=== PATIENT | female | born 1960 | race Caucasian/White ===

== ENCOUNTER 2018-10-06 03:09 | Inpatient (IN) | payer BC ==
[2018-10-06] MEDS ORDERED: Albuterol/Ipratropium 3.0-0.5 MG/3 ML Neb Soln ONE ×2 (04:07→06:22)
[2018-10-06] MEDS: Albuterol/Ipratropium 3.0-0.5 MG/3 ML Neb Soln NEB ONE ×2 (04:15→06:25)
--- NOTE | 2018-10-06 04:38 | EDM.PDOC ---
ED HPI GENERAL MEDICAL PROBLEM - General Chief Complaint: Respiratory Problem Stated Complaint: SHORT OF BREATH Time Seen by Provider: 10/06/18 03:50 Source of Information: Reports: Patient History Limitations: Reports: No Limitations - History of Present Illness INITIAL COMMENTS - FREE TEXT/NARRATIVE: This is a 58-year-old female. On September 16 she started having increasing shortness of breath and was told she had bronchitis and placed on some antibiotics. She was given an inhaler because she was wheezing but every time she would try to use the inhaler would make her cough gets short of breath. The antibiotics really did not help her and she went back to see her family doctor who put her on some doxycycline just recently but that is not helping her either. She has constant wheezing and tightness in her chest. Since this was not easing up she came to the ER this morning for evaluation. She says for the last several night she can't lay down and sleep because she is short of breath she can't walk across the room because she gets short of breath. When she walked into the ER and was talking her pulse ox was 82% when she sat down in the room on room air was 86% to put 2 L on her by nasal cannula it went up to 92%. She denies any sort of fever or chills. She denies any nausea or vomiting. She has no history of asthma she has no history of COPD though she used to smoke but quit about a month ago. She says she was never a heavy smoker. - Related Data Allergies Allergy/AdvReac Type Severity Reaction Status Date / Time No Known Allergies Allergy Verified 10/06/18 04:16 Home Meds: Home Meds Aspirin 81 mg PO DAILY 01/21/18 [History] Bimatoprost [LUMIGAN 0.01% Ophth Soln] 1 drop EYEBOTH BEDTIME 01/21/18 [History] Levothyroxine 150 mg PO 0700 01/21/18 [History] Metoprolol Succinate 200 mg PO DAILY 01/21/18 [History] Timolol Maleate [Timoptic 0.25% Ophth Soln] 1 drop EYEBOTH DAILY 01/21/18 [ History] hydroCHLOROthiazide [Hydrochlorothiazide] 12.5 mg PO DAILY 01/21/18 [History] Doxycycline [Vibramycin] 100 mg PO BID 10/06/18 [History] Lisinopril/Hydrochlorothiazide [Lisinopril-Hctz 20-25 mg Tab] 1 tab PO DAILY [History] Lutein/Minerals/Vit A,C & E [Ocuvite] 1 tab PO DAILY 10/06/18 [History] amLODIPine Besylate [Amlodipine Besylate] 5 mg PO DAILY 10/06/18 [History] Past Medical History HEENT History: Reports: Glaucoma Other HEENT History: dry eye Cardiovascular History: Reports: Heart Murmur, Hypertension Endocrine/Metabolic History: Reports: Hypothyroidism Other Endocrine/Metabolic History: pt states that she has Graves Disease Hematologic History: Reports: Anemia - Infectious Disease History Infectious Disease History: Reports: Chicken Pox, Measles, Mumps Social & Family History - Tobacco Use Smoking Status *Q: Former Smoker Packs/Tins Daily: 0.2 Used Tobacco, but Quit: Yes Month/Year Tobacco Last Used: 09/2018 - Caffeine Use Caffeine Use: Reports: None - Recreational Drug Use Recreational Drug Use: Yes - Living Situation & Occupation Living situation: Reports: , with Spouse Occupation: Unemployed ED ROS GENERAL - Review of Systems Review Of Systems: See Below Constitutional: Reports: Malaise, Weakness, Fatigue. Denies: Fever, Chills HEENT: Reports: No Symptoms Respiratory: Reports: Shortness of Breath, Wheezing, Cough Cardiovascular: Reports: Chest Pain Endocrine: Reports: No Symptoms GI/Abdominal: Denies: Abdominal Pain, Diarrhea, Nausea, Vomiting : Reports: No Symptoms Musculoskeletal: Reports: No Symptoms Skin: Reports: No Symptoms Neurological: Reports: No Symptoms Psychiatric: Reports: Anxiety Hematologic/Lymphatic: Reports: No Symptoms ED EXAM, GENERAL - Physical Exam Exam: See Below Exam Limited By: No Limitations General Appearance: Alert, WD/WN, Mild Distress Eye Exam: Bilateral Eye: Normal Inspection Ears: Normal External Exam, Normal Canal, Normal TMs Nose: Normal Inspection. No: Nasal Flaring Throat/Mouth: Normal Inspection, Normal Lips, Normal Voice Head: Normocephalic Neck: Normal Inspection, Supple Respiratory/Chest: Wheezing, Other (She has an inspiratory and expiratory wheeze with a very prolonged expiratory phase noted, there does not appear to be consolidation noted) Cardiovascular: Regular Rate, Rhythm, No Murmur GI/Abdominal: Other (Patient is morbidly obese but denies any abdominal tenderness) Back Exam: Decreased Range of Motion Extremities: Normal Inspection, Normal Range of Motion, No Pedal Edema, Normal Capillary Refill Neurological: Alert, Oriented Psychiatric: Normal Affect, Normal Mood Skin Exam: Warm, Dry EKG INTERPRETATION EKG Date: 10/06/18 Time: 04:20 EKG Interpretation Comments: EKG shows a normal sinus rhythm rate of 66 with there are no acute ST or T-wave changes and there is no ischemia noted Course - Vital Signs Last Recorded V/S: Last Vital Signs Temp 97.2 F 10/06/18 03:34 Pulse 63 10/06/18 03:34 Resp 28 H 10/06/18 03:34 BP 117/79 10/06/18 03:34 Pulse Ox 94 L 10/06/18 04:55 - Orders/Labs/Meds Orders: Active Orders 24 hr Category Date Time Status EKG 12 Lead [EKG Documentation Completion] [] STAT Care 10/06/18 04:07 Active Oxygen Therapy Adult [Oxygen Therapy, ED] [] Care 10/06/18 04:02 Active ASDIRECTED RT Aerosol Therapy [RC] ASDIRECTED Care 10/06/18 04:09 Active RT Aerosol Therapy [RC] ASDIRECTED Care 10/06/18 04:42 Active Chest 2V [CR] Stat Exams 10/06/18 04:07 Taken Labs: Laboratory Tests 10/06/18 10/06/18 10/06/18 Range/Units 04:20 04:20 04:20 WBC 11.00 H (3.98-10.04) K/mm3 RBC 5.29 H (3.98-5.22) M/mm3 Hgb 16.9 H (11.2-15.7) gm/L Hct 46.3 H (34.1-44.9) % MCV 87.5 (79.4-94.8) fl MCH 31.9 (25.6-32.2) pg MCHC 36.5 H (32.2-35.5) g/dl RDW Std Deviation 39.6 (36.4-46.3) fL Plt Count 334 (182-369) K/mm3 MPV 11.0 (9.4-12.3) fl Neut % (Auto) 65.6 (34.0-71.1) % Lymph % (Auto) 13.5 L (19.3-51.7) % [place] % (Auto) 7.5 (4.7-12.5) % Eos % (Auto) 12.5 H (0.7-5.8) Baso % (Auto) 0.7 (0.1-1.2) % Neut # (Auto) 7.23 H (1.56-6.13) K/mm3 Lymph # (Auto) 1.48 (1.18-3.74) K/mm3 [place] # (Auto) 0.82 H (0.24-0.36) K/mm3 Eos # (Auto) 1.37 H (0.04-0.36) K/mm3 Baso # (Auto) 0.08 (0.01-0.08) K/mm3 Sodium 135 L (136-145) mEq/L Potassium 3.2 L (3.5-5.1) mEq/L Chloride 98 (98-107) mEq/L Carbon Dioxide 27 (21-32) mEq/L Anion Gap 13.2 (5-15) BUN 10 (7-18) mg/dL Creatinine 0.8 (0.55-1.02) mg/dL Est Cr Clr Drug Dosing 82.06 mL/min Estimated GFR (MDRD) > 60 (>60) mL/min BUN/Creatinine Ratio 12.5 L (14-18) Glucose 114 H (74-106) mg/dL Calcium 9.7 (8.5-10.1) mg/dL Total Bilirubin 1.0 (0.2-1.0) mg/dL AST 20 (15-37) U/L ALT 47 (14-59) U/L Alkaline Phosphatase 89 (46-116) U/L Troponin I < 0.017 (0.00-0.056) ng/mL C-Reactive Protein 1.4 H* (<1.0) mg/dL NT-Pro-B Natriuret Pep 65 (0-125) pg/mL Total Protein 7.7 (6.4-8.2) g/dl Albumin 3.9 (3.4-5.0) g/dl Globulin 3.8 gm/dL Albumin/Globulin Ratio 1.0 (1-2) Meds: Medications Discontinued Medications Generic Name Dose Route Start Last Admin Trade Name Freq PRN Reason Stop Dose Admin Albuterol/Ipratropium Confirm 10/06/18 04:07 10/06/18 04:15 Duoneb 3.0-0.5 Mg/3 Ml Administered 10/06/18 04:08 Not Given Dose 3 ml .ROUTE .STK-MED ONE Albuterol/Ipratropium 3 ml 10/06/18 04:09 10/06/18 04:15 Duoneb 3.0-0.5 Mg/3 Ml NEB 10/06/18 04:10 3 ml ONETIME ONE Administration Budesonide 0.5 mg 10/06/18 04:42 10/06/18 04:53 Pulmicort NEB 10/06/18 04:43 0.5 mg ONETIME ONE Administration Methylprednisolone Sodium Succinate 125 mg 10/06/18 05:08 10/06/18 05:29 Solu-Medrol IVPUSH 10/06/18 05:09 125 mg ONETIME ONE Administration - Radiology Interpretation Free Text/Narrative:: Chest x-ray does not show any acute changes but she has very large lungs suggesting early emphysema - Re-Assessments/Exams Free Text/Narrative Re-Assessment/Exam: 10/06/18 05:10 I spoke to the patient regarding her test results and x-ray. He breathing treatment and the Pulmicort started to open her up she still has wheezing both inspiratory and expiratory and a prolonged expiratory phase. 10/06/18 06:14 After breathing treatment and a Pulmicort and Solu-Medrol IV and another breathing treatment she really hasn't changed this far as the wheezing is concerned. I spoke to Dr. Carter he will admit her for further evaluation and treatment. She has acute bronchitis with exacerbation of COPD with hypoxemia. Departure - Departure Time of Disposition: 06:17 Disposition: Admitted As Inpatient 68 Condition: Poor Clinical Impression: Acute exacerbation of chronic obstructive pulmonary disease (COPD), Hypoxemia Acute bronchitis Qualifiers: Bronchitis organism: unspecified organism Qualified Code(s): J20.9 - Acute bronchitis, unspecified - Discharge Information ED Communication - ED Communication Date/Time Date: 10/06/18 Time Called: 06:18 - Discussed Case With (1) Discussed Case With (1): Admitting Provider Person/s Notified (1): Antoine Puentes (He will admit for further evaluation and treatment) - My Orders Last 24 Hours: My Active Orders 10/06/18 04:02 Oxygen Therapy Adult [Oxygen Therapy, ED] [RC] ASDIRECTED 10/06/18 04:07 EKG 12 Lead [EKG Documentation Completion] [RC] STAT Chest 2V [CR] Stat 10/06/18 04:09 RT Aerosol Therapy [RC] ASDIRECTED 10/06/18 04:42 RT Aerosol Therapy [RC] ASDIRECTED - Assessment/Plan Last 24 Hours: My Active Orders 10/06/18 04:02 Oxygen Therapy Adult [Oxygen Therapy, ED] [RC] ASDIRECTED 10/06/18 04:07 EKG 12 Lead [EKG Documentation Completion] [RC] STAT Chest 2V [CR] Stat 10/06/18 04:09 RT Aerosol Therapy [RC] ASDIRECTED 10/06/18 04:42 RT Aerosol Therapy [RC] ASDIRECTED
[2018-10-06] MEDS ORDERED: Budesonide 0.5 MG/2 ML Neb Susp NEB ONE (04:42)
[2018-10-06] MEDS ORDERED: methylPREDNISolone Sodium Succinate 125 MG/2 ML SDV IVPUSH ONE (05:08)
[2018-10-06] MEDS ORDERED: Albuterol/Ipratropium 3.0-0.5 MG/3 ML Neb Soln NEB ONE (06:15)
[2018-10-06] MEDS ORDERED: cefTRIAXone 2 GM Vial IVPUSH SCH (09:30)
[2018-10-06] MEDS ORDERED: Potassium Chloride 20 MEQ Tab.ER PO ONE (09:30)
[2018-10-06] MEDS ORDERED: Non-Formulary Medication 1 Each (Hydrochlorothiazide [Hydrochlorothiazide] 12.5 MG) PO SCH (09:30)
[2018-10-06] MEDS: Levothyroxine 150 MCG Tab PO SCH (10:18)
[2018-10-06] MEDS: Aspirin 81 MG Tab.EC PO SCH (10:18)
[2018-10-06] MEDS: Metoprolol Succinate 50 MG Tab.ER PO SCH (10:18)
[2018-10-06] MEDS: Hydrochlorothiazide 12.5 MG Cap PO SCH (10:19)
[2018-10-06] MEDS: Lisinopril 20 MG Tab PO SCH (10:20)
[2018-10-06] MEDS: amLODIPine 5 MG Tab PO SCH (10:21)
[2018-10-06] MEDS: methylPREDNISolone Sodium Succinate 40 MG/1 ML SDV IVPUSH SCH ×3 (10:21→22:19)
[2018-10-06] MEDS: cefTRIAXone 2 GM in Sodium Chloride 0.9% 100 ML IV SCH (10:25)
[2018-10-06] MEDS: Timolol Maleate 0.25% Ophth Soln 5 ML Bottle EYEBOTH SCH (10:36)
[2018-10-06] MEDS: Albuterol/Ipratropium 3.0-0.5 MG/3 ML Neb Soln NEB SCH ×4 (10:47→21:56)
--- NOTE | 2018-10-06 11:50 | PCM.HP ---
H&P History of Present Illness - General Date of Service: 10/06/18 Admit Problem/Dx: Admission Diagnosis/Problem Admission Diagnosis/Problem Acute bronchitis - History of Present Illness Initial Comments - Free Text/Narative: 58-year-old female with increasing shortness of breath and cough for the last 30 days. Patient was seen on September 16 by the clinic and treated with prednisone, Z-Flaco, albuterol for bronchitis. Patient returned to the clinic couple of weeks later after only having had moderate improvement and placed on doxycycline. Patient stopped smoking 2 months ago, but has been smoking off and on since she was a teenager. She has no history of lung disease previously. This morning patient had significant worsening of her shortness of breath and came into the emergency room. Patient was found to have a pulse ox in the 80s and after breathing treatments and steroids it did not improve enough to send her home. Currently patient states she is feeling much better and she has 2 L nasal cannula O2. She denies any fever, chills, or night sweats. She denies any productive sputum. Chest x-ray done in the ER showed no infiltrate. - Related Data Allergies/Adverse Reactions: Allergies Allergy/AdvReac Type Severity Reaction Status Date / Time No Known Allergies Allergy Verified 10/06/18 04:16 Home Medications: Home Meds Aspirin 81 mg PO DAILY 01/21/18 [History] Bimatoprost [LUMIGAN 0.01% Ophth Soln] 1 drop EYEBOTH BEDTIME 01/21/18 [History] Levothyroxine 150 mg PO 0700 01/21/18 [History] Metoprolol Succinate 200 mg PO DAILY 01/21/18 [History] Timolol Maleate [Timoptic 0.25% Ophth Soln] 1 drop EYEBOTH DAILY 01/21/18 [ History] hydroCHLOROthiazide [Hydrochlorothiazide] 12.5 mg PO DAILY 01/21/18 [History] Doxycycline [Vibramycin] 100 mg PO BID 10/06/18 [History] Lisinopril/Hydrochlorothiazide [Lisinopril-Hctz 20-25 mg Tab] 1 tab PO DAILY [History] Lutein/Minerals/Vit A,C & E [Ocuvite] 1 tab PO DAILY 10/06/18 [History] amLODIPine Besylate [Amlodipine Besylate] 5 mg PO DAILY 10/06/18 [History] Past Medical History HEENT History: Reports: Allergic Rhinitis, Glaucoma, Other (See Below) Other HEENT History: dry eye, wears glasses and contacts Cardiovascular History: Reports: Heart Murmur, Hypertension, SOB on Exertion Respiratory History: Reports: Bronchitis, Recurrent Neurological History: Reports: Concussion, Other (See Below) Other Neuro History: 1995 Endocrine/Metabolic History: Reports: Hypothyroidism, Obesity/BMI 30+ Other Endocrine/Metabolic History: pt states that she has Graves Disease Hematologic History: Reports: Anemia - Infectious Disease History Infectious Disease History: Reports: Chicken Pox, Measles, Mumps, Shingles - Past Surgical History HEENT Surgical History: Reports: None Cardiovascular Surgical History: Reports: None Endocrine Surgical History: Reports: Other (See Below) Other Endocrine Surgeries/Procedures: thyroid ablation Neurological Surgical History: Reports: None Social & Family History - Family History Cardiac: Reports: Hypertension Respiratory: Reports: Other (See Below) Other Respiratory Family Hisory: emphysema - Tobacco Use Smoking Status *Q: Former Smoker Years of Tobacco use: 30 Packs/Tins Daily: 0.2 Used Tobacco, but Quit: Yes Month/Year Tobacco Last Used: August 2018 Second Hand Smoke Exposure: No - Caffeine Use Caffeine Use: Reports: Coffee, Tea - Recreational Drug Use Recreational Drug Use: No - Living Situation & Occupation Living situation: Reports: , with Spouse Occupation: Unemployed H&P Review of Systems - Review of Systems: Review Of Systems: See Below General: Reports: No Symptoms. Denies: Fever, Chills HEENT: Reports: No Symptoms Pulmonary: Reports: Shortness of Breath, Wheezing, Cough. Denies: Sputum, Hemoptysis Cardiovascular: Reports: No Symptoms. Denies: Chest Pain Gastrointestinal: Reports: No Symptoms. Denies: Abdominal Pain Psychiatric: Reports: No Symptoms. Denies: Confusion, Depression Neurological: Reports: No Symptoms. Denies: Confusion, Dizziness Exam - Exam Exam: See Below - Vital Signs Vital Signs: Last Vital Signs Temp 97.9 F 10/06/18 11:32 Pulse 76 10/06/18 11:32 Resp 18 10/06/18 11:32 BP 128/83 10/06/18 11:32 Pulse Ox 92 L 10/06/18 11:32 Weight: 210 lb 9.6 oz - Exam Quality Assessment: Supplemental Oxygen General: Alert, Oriented HEENT: Conjunctiva Clear, Mucosa Moist & [place] Neck: Supple, Trachea Midline Lungs: Wheezing (Throughout both lung perez). No: Normal Respiratory Effort ( Slight increase in respiratory effort and rate), Rhonchi Cardiovascular: Regular Rate, Regular Rhythm GI/Abdominal Exam: Normal Bowel Sounds, Soft, Non-Tender, No Distention Extremities: Normal Inspection, Normal Range of Motion, Non-Tender, No Pedal Edema Skin: Warm, Dry, Intact Neuro Extensive - Mental Status: Alert, Oriented x3, Normal Mood/Affect, Normal Cognition, Memory Intact Neuro Extensive - Motor, Sensory, Reflexes: CN II-XII Intact Psychiatric: Alert, Normal Affect, Normal Mood - Patient Data Lab Results Last 24 hrs: Laboratory Results - last 24 hr 10/06/18 10/06/18 10/06/18 Range/Units 04:20 04:20 04:20 WBC 11.00 H (3.98-10.04) K/mm3 RBC 5.29 H (3.98-5.22) M/mm3 Hgb 16.9 H (11.2-15.7) gm/L Hct 46.3 H (34.1-44.9) % MCV 87.5 (79.4-94.8) fl MCH 31.9 (25.6-32.2) pg MCHC 36.5 H (32.2-35.5) g/dl RDW Std Deviation 39.6 (36.4-46.3) fL Plt Count 334 (182-369) K/mm3 MPV 11.0 (9.4-12.3) fl Neut % (Auto) 65.6 (34.0-71.1) % Lymph % (Auto) 13.5 L (19.3-51.7) % [place] % (Auto) 7.5 (4.7-12.5) % Eos % (Auto) 12.5 H (0.7-5.8) Baso % (Auto) 0.7 (0.1-1.2) % Neut # (Auto) 7.23 H (1.56-6.13) K/mm3 Lymph # (Auto) 1.48 (1.18-3.74) K/mm3 [place] # (Auto) 0.82 H (0.24-0.36) K/mm3 Eos # (Auto) 1.37 H (0.04-0.36) K/mm3 Baso # (Auto) 0.08 (0.01-0.08) K/mm3 Sodium 135 L (136-145) mEq/L Potassium 3.2 L (3.5-5.1) mEq/L Chloride 98 (98-107) mEq/L Carbon Dioxide 27 (21-32) mEq/L Anion Gap 13.2 (5-15) BUN 10 (7-18) mg/dL Creatinine 0.8 (0.55-1.02) mg/dL Est Cr Clr Drug Dosing 82.06 mL/min Estimated GFR (MDRD) > 60 (>60) mL/min BUN/Creatinine Ratio 12.5 L (14-18) Glucose 114 H (74-106) mg/dL Calcium 9.7 (8.5-10.1) mg/dL Total Bilirubin 1.0 (0.2-1.0) mg/dL AST 20 (15-37) U/L ALT 47 (14-59) U/L Alkaline Phosphatase 89 (46-116) U/L Troponin I < 0.017 (0.00-0.056) ng/mL C-Reactive Protein 1.4 H* (<1.0) mg/dL NT-Pro-B Natriuret Pep 65 (0-125) pg/mL Total Protein 7.7 (6.4-8.2) g/dl Albumin 3.9 (3.4-5.0) g/dl Globulin 3.8 gm/dL Albumin/Globulin Ratio 1.0 (1-2) Result Diagrams: 10/06/18 04:20 10/06/18 04:20 - Problem List (1) Acute exacerbation of chronic obstructive pulmonary disease (COPD) SNOMED Code(s): 032216865 ICD Code: J44.1 - CHRONIC OBSTRUCTIVE PULMONARY DISEASE W (ACUTE) EXACERBATION Status: Acute Current Visit: Yes (2) Hypoxemia SNOMED Code(s): 738459143 ICD Code: R09.02 - HYPOXEMIA Status: Acute Current Visit: Yes Problem List Initiated/Reviewed/Updated: Yes Orders Last 24hrs: Active Orders 24 hr Category Date Time Status Patient Status [ADT] Routine ADT 10/06/18 06:19 Active EKG 12 Lead [EKG Documentation Completion] [RC] STAT Care 10/06/18 04:07 Active Oxygen Therapy Adult [Oxygen Therapy, ED] [RC] Care 10/06/18 04:02 Active ASDIRECTED RT Aerosol Therapy [RC] ASDIRECTED Care 10/06/18 08:21 Active Up ad Michelle [RC] ASDIRECTED Care 10/06/18 09:14 Active Regular Diet [DIET] Diet 10/06/18 Lunch Active Chest 2V [CR] Stat Exams 10/06/18 04:07 Taken Albuterol/Ipratropium [DuoNeb 3.0-0.5 MG/3 ML] Med 10/06/18 10:30 Active 3 ml NEB Q4HRRT Aspirin [Halfprin] Med 10/06/18 09:30 Active 81 mg PO DAILY Latanoprost [Xalatan 0.005% Ophth Soln] Med 10/06/18 21:00 Active 0 ml EYEBOTH BEDTIME Levothyroxine Med 10/06/18 07:00 Active 150 mcg PO 0700 Lisinopril [Prinivil] Med 10/06/18 10:00 Active 20 mg PO DAILY Metoprolol Succinate [Toprol XL] Med 10/06/18 09:30 Active 200 mg PO DAILY Multivitamins/Min/FA/Lut/Zeax [ICaps MV] Med 10/07/18 09:00 Active 1 tab PO DAILY Timolol Maleate [Timoptic 0.25% Ophth Soln] Med 10/06/18 09:30 Active 0 ml EYEBOTH DAILY amLODIPine [Norvasc] Med 10/06/18 09:30 Active 5 mg PO DAILY cefTRIAXone [Rocephin] 2 gm Med 10/06/18 10:00 Active Sodium Chloride 0.9% [Normal Saline] 100 ml IV Q24H hydroCHLOROthiazide Med 10/06/18 10:00 Active 37.5 mg PO DAILY methylPREDNISolone Sod Succ [Solu-MEDROL] Med 10/06/18 11:00 Active 60 mg IVPUSH Q6H Code Status [Resuscitation Status] Routine Resus Stat 10/06/18 09:13 Ordered Medication Orders Albuterol/Ipratropium (Duoneb 3.0-0.5 Mg/3 Ml) 3 ml NEB Q4HRRT LEIF Last Admin: 10/06/18 10:47 Dose: 3 ml Amlodipine Besylate (Norvasc) 5 mg PO DAILY [facility] Last Admin: 10/06/18 10:21 Dose: 5 mg Aspirin (Halfprin) 81 mg PO DAILY [facility] Last Admin: 10/06/18 10:18 Dose: 81 mg Hydrochlorothiazide (Hydrochlorothiazide) 37.5 mg PO DAILY [facility] Last Admin: 10/06/18 10:19 Dose: 37.5 mg Ceftriaxone Sodium 2 gm/ (Sodium Chloride) 100 mls @ 200 mls/hr IV Q24H LEIF Last Admin: 10/06/18 10:25 Dose: 200 mls/hr Latanoprost (Xalatan 0.005% Ophth Soln) 0 ml EYEBOTH BEDTIME LEIF Levothyroxine Sodium (Levothyroxine) 150 mcg PO 0700 [facility] Last Admin: 10/06/18 10:18 Dose: 150 mcg Lisinopril (Prinivil) 20 mg PO DAILY [facility] Last Admin: 10/06/18 10:20 Dose: 20 mg Methylprednisolone Sodium Succinate (Solu-Medrol) 60 mg IVPUSH Q6H [facility] Last Admin: 10/06/18 10:21 Dose: 60 mg Metoprolol Succinate (Toprol Xl) 200 mg PO DAILY [facility] Last Admin: 10/06/18 10:18 Dose: 200 mg Timolol Maleate (Timoptic 0.25% Ophth Soln) 0 ml EYEBOTH DAILY [facility] Last Admin: 10/06/18 10:36 Dose: 5 ml Vit A/Vit C/Vit E/Selen/Cu/Zn/Lutei (Icaps Mv) 1 tab PO DAILY [facility] Assessment/Plan Comment:: Assessment * 58-year-old female who recently stopped smoking with a 30 day history of bronchitis symptoms presents to the emergency room with wheezing, cough, shortness of breath, and hypoxemia. * Symptoms and history are consistent with acute exacerbation of COPD. * Past medical history consistent with hypothyroidism, hypertension, and glaucoma Plan * Continue IV Solu-Medrol today and start back on prednisone tomorrow. * Rocephin 2 g now and every 24 hours * DuoNeb every 4 hours today and decreased to every 6 hours if improving by this evening * Offered nicotine replacement but she declined * Restart home meds * CBC, CMP, magnesium in the morning. * CODE STATUS: Full code * VTE prophylaxis: Lovenox 40 mg daily * Length of stay likely 3 days.
[2018-10-06] MEDS: Latanoprost 0.005% Ophth Soln 2.5 ML Bottle EYEBOTH SCH (22:18)
[2018-10-07] MEDS: Albuterol/Ipratropium 3.0-0.5 MG/3 ML Neb Soln NEB SCH ×5 (02:26→20:16)
[2018-10-07] MEDS: methylPREDNISolone Sodium Succinate 40 MG/1 ML SDV IVPUSH SCH ×4 (07:12→23:39)
[2018-10-07] MEDS: Levothyroxine 150 MCG Tab PO SCH (07:12)
[2018-10-07] MEDS ORDERED: Potassium Chloride 20 MEQ Tab.ER PO ONE (07:30)
[2018-10-07] MEDS: Metoprolol Succinate 50 MG Tab.ER PO SCH (08:42)
[2018-10-07] MEDS: Aspirin 81 MG Tab.EC PO SCH (08:44)
[2018-10-07] MEDS: Enoxaparin 40 MG/0.4 ML Syringe SUBCUT SCH (08:44)
[2018-10-07] MEDS: Multivitamins with Minerals/Folic Acid/Lutein/Zeaxanth Tab PO SCH (08:45)
[2018-10-07] MEDS: Timolol Maleate 0.25% Ophth Soln 5 ML Bottle EYEBOTH SCH (08:45)
[2018-10-07] MEDS: Hydrochlorothiazide 12.5 MG Cap PO SCH (08:45)
--- NOTE | 2018-10-07 09:07 | CR ---
Chest: Two views of the chest were obtained. Comparison: Prior chest x-ray of 01/21/18. Heart size and mediastinum are normal. Lungs are clear but slightly hyperinflated. Bony structures appear within normal limits for the patient's age. Impression: 1. Questionable emphysematous change. Please correlate if patient is a smoker. 2. Nothing acute is otherwise seen. Diagnostic code #2
[2018-10-07] MEDS: cefTRIAXone 2 GM in Sodium Chloride 0.9% 100 ML IV SCH (10:41)
[2018-10-07] MEDS: amLODIPine 5 MG Tab PO SCH (10:41)
[2018-10-07] MEDS: Lisinopril 20 MG Tab PO SCH (10:41)
[2018-10-07] MEDS ORDERED: Albuterol 0.083% 2.5 MG/3 ML Neb Soln NEB PRN (12:27)
--- NOTE | 2018-10-07 12:27 | PCM.PN ---
- General Info Date of Service: 10/07/18 Admission Dx/Problem (Free Text): Admission Diagnosis/Problem Admission Diagnosis/Problem Acute bronchitis Subjective Update: patient is starting to improve. She still requires 2 L nasal cannula. She continues on IV Solu-Medrol and Rocephin. Work of breathing has decreased per patient. - Review of Systems General: Reports: No Symptoms HEENT: Reports: No Symptoms Pulmonary: Reports: Shortness of Breath, Cough Cardiovascular: Reports: No Symptoms, Chest Pain Gastrointestinal: Reports: No Symptoms - Patient Data Vitals - Most Recent: Last Vital Signs Temp 97.5 F 10/07/18 02:42 Pulse 76 10/07/18 10:42 Resp 16 10/07/18 08:42 BP 120/77 10/07/18 10:42 Pulse Ox 90 L 10/07/18 09:08 Weight - Most Recent: 212 lb 4.8 oz I&O - Last 24 Hours: Intake & Output 10/06/18 10/07/18 10/07/18 22:59 06:59 14:59 Intake Total 800 800 Output Total 975 700 Balance -175 100 Lab Results Last 24 Hours: Laboratory Results - last 24 hr 10/07/18 10/07/18 Range/Units 04:45 04:45 WBC 10.17 H (3.98-10.04) K/mm3 RBC 5.00 (3.98-5.22) M/mm3 Hgb 15.9 H (11.2-15.7) gm/L Hct 44.8 (34.1-44.9) % MCV 89.6 (79.4-94.8) fl MCH 31.8 (25.6-32.2) pg MCHC 35.5 (32.2-35.5) g/dl RDW Std Deviation 41.5 (36.4-46.3) fL Plt Count 301 (182-369) K/mm3 MPV 11.2 (9.4-12.3) fl Neut % (Auto) 90.1 H (34.0-71.1) % Lymph % (Auto) 7.8 L (19.3-51.7) % [place] % (Auto) 2.0 L (4.7-12.5) % Eos % (Auto) 0 L (0.7-5.8) Baso % (Auto) 0.0 L (0.1-1.2) % Neut # (Auto) 9.17 H (1.56-6.13) K/mm3 Lymph # (Auto) 0.79 L (1.18-3.74) K/mm3 [place] # (Auto) 0.20 L (0.24-0.36) K/mm3 Eos # (Auto) 0.00 L (0.04-0.36) K/mm3 Baso # (Auto) 0.00 L (0.01-0.08) K/mm3 Manual Slide Review Abnormal smear Sodium 137 (136-145) mEq/L Potassium 3.2 L (3.5-5.1) mEq/L Chloride 102 (98-107) mEq/L Carbon Dioxide 26 (21-32) mEq/L Anion Gap 12.2 (5-15) BUN 18 (7-18) mg/dL Creatinine 0.8 (0.55-1.02) mg/dL Est Cr Clr Drug Dosing 82.06 mL/min Estimated GFR (MDRD) > 60 (>60) mL/min BUN/Creatinine Ratio 22.5 H (14-18) Glucose 149 H (74-106) mg/dL Calcium 9.7 (8.5-10.1) mg/dL Magnesium 1.8 (1.8-2.4) mg/dl Total Bilirubin 0.5 (0.2-1.0) mg/dL AST 13 L (15-37) U/L ALT 32 (14-59) U/L Alkaline Phosphatase 74 (46-116) U/L Total Protein 6.9 (6.4-8.2) g/dl Albumin 3.3 L (3.4-5.0) g/dl Globulin 3.6 gm/dL Albumin/Globulin Ratio 0.9 L (1-2) Med Orders - Current: Current Medications Albuterol/Ipratropium (Duoneb 3.0-0.5 Mg/3 Ml) 3 ml NEB Q4HRRT [facility] Last Admin: 10/07/18 09:07 Dose: 3 ml Amlodipine Besylate (Norvasc) 5 mg PO DAILY [facility] Last Admin: 10/07/18 10:41 Dose: 5 mg Aspirin (Halfprin) 81 mg PO DAILY [facility] Last Admin: 10/07/18 08:44 Dose: 81 mg Enoxaparin Sodium (Lovenox) 40 mg SUBCUT DAILY [facility] Last Admin: 10/07/18 08:44 Dose: 40 mg Hydrochlorothiazide (Hydrochlorothiazide) 37.5 mg PO DAILY [facility] Last Admin: 10/07/18 08:45 Dose: 37.5 mg Ceftriaxone Sodium 2 gm/ (Sodium Chloride) 100 mls @ 200 mls/hr IV Q24H [facility] Last Admin: 10/07/18 10:41 Dose: 200 mls/hr Latanoprost (Xalatan 0.005% Oph Soln) 0 ml EYEBOTH BEDTIME [facility] Last Admin: 10/06/18 22:18 Dose: 1 drop Levothyroxine Sodium (Levothyroxine) 150 mcg PO 0700 [facility] Last Admin: 10/07/18 07:12 Dose: 150 mcg Lisinopril (Prinivil) 20 mg PO DAILY [facility] Last Admin: 10/07/18 10:41 Dose: 20 mg Methylprednisolone Sodium Succinate (Solu-Medrol) 60 mg IVPUSH Q6H [facility] Last Admin: 10/07/18 07:12 Dose: 60 mg Metoprolol Succinate (Toprol Xl) 200 mg PO DAILY [facility] Last Admin: 10/07/18 08:42 Dose: 200 mg Potassium Chloride (Klor-Con M20) 20 meq PO BEDTIME [facility] Timolol Maleate (Timoptic 0.25% [facility] Soln) 0 ml EYEBOTH DAILY [facility] Last Admin: 10/07/18 08:45 Dose: 1 ml Vit A/Vit C/Vit E/Selen/Cu/Zn/Lutei (Icaps Mv) 1 tab PO DAILY [facility] Last Admin: 10/07/18 08:45 Dose: 1 tab Discontinued Medications Albuterol/Ipratropium (Duoneb 3.0-0.5 Mg/3 Ml) Confirm Administered Dose 3 ml .ROUTE .STK-MED ONE Stop: 10/06/18 04:08 Last Admin: 10/06/18 04:15 Dose: Not Given Albuterol/Ipratropium (Duoneb 3.0-0.5 Mg/3 Ml) 3 ml NEB ONETIME ONE Stop: 10/06/18 04:10 Last Admin: 10/06/18 04:15 Dose: 3 ml Albuterol/Ipratropium (Duoneb 3.0-0.5 Mg/3 Ml) Confirm Administered Dose 3 ml .ROUTE .STK-MED ONE Stop: 10/06/18 06:23 Last Admin: 10/06/18 06:27 Dose: 3 ml Albuterol/Ipratropium (Duoneb 3.0-0.5 Mg/3 Ml) 3 ml NEB ONETIME ONE Stop: 10/06/18 06:16 Last Admin: 10/06/18 08:53 Dose: Not Given Budesonide (Pulmicort) 0.5 mg NEB ONETIME ONE Stop: 10/06/18 04:43 Last Admin: 10/06/18 04:53 Dose: 0.5 mg Ceftriaxone Sodium (Rocephin) 2 gm IVPUSH Q24H [facility] Last Admin: 10/06/18 12:02 Dose: Not Given Methylprednisolone Sodium Succinate (Solu-Medrol) 125 mg IVPUSH ONETIME ONE Stop: 10/06/18 05:09 Last Admin: 10/06/18 05:29 Dose: 125 mg Non-Formulary Medication (Hydrochlorothiazide [Hydrochlorothiazide]) 12.5 mg PO DAILY [facility] Last Admin: 10/06/18 12:03 Dose: Not Given Non-Formulary Medication (Lisinopril/Hydrochlorothiazide [Lisinopril-Hctz 20-25 Mg Tab]) 1 tab PO DAILY [facility] Last Admin: 10/06/18 12:03 Dose: Not Given Potassium Chloride (Klor-Con M20) 20 meq PO ONETIME ONE Stop: 10/06/18 09:31 Last Admin: 10/06/18 10:18 Dose: 20 meq Potassium Chloride (Klor-Con M20) 40 meq PO ONETIME ONE Stop: 10/07/18 07:31 Last Admin: 10/07/18 08:45 Dose: 40 meq - Exam Quality Assessment: Supplemental Oxygen General: Alert, Oriented HEENT: Scleral Icterus Neck: Supple Lungs: Decreased Breath Sounds, Wheezing. No: Normal Respiratory Effort ( slight increased respiratory rate and effort.) Cardiovascular: Regular Rate, Regular Rhythm GI/Abdominal Exam: Normal Bowel Sounds, Soft, Non-Tender, No Distention Extremities: Normal Inspection, Normal Range of Motion, Non-Tender, No Pedal Edema - Problem List & Annotations (1) Acute exacerbation of chronic obstructive pulmonary disease (COPD) SNOMED Code(s): 046123942 Code(s): J44.1 - CHRONIC OBSTRUCTIVE PULMONARY DISEASE W (ACUTE) EXACERBATION Status: Acute Current Visit: Yes (2) Hypoxemia SNOMED Code(s): 687003653 Code(s): R09.02 - HYPOXEMIA Status: Acute Current Visit: Yes - Problem List Review Problem List Initiated/Reviewed/Updated: Yes - My Orders Last 24 Hours: My Active Orders 10/06/18 21:00 Latanoprost [Xalatan 0.005% Ophth Soln] 0 ml EYEBOTH BEDTIME 10/07/18 09:00 Enoxaparin [Lovenox] 40 mg SUBCUT DAILY Multivitamins/Min/FA/Lut/Zeax [ICaps MV] 1 tab PO DAILY 10/07/18 21:00 Potassium Chloride [Klor-Con M20] 20 meq PO BEDTIME - Plan Plan:: Assessment * 58-year-old female who recently stopped smoking with a 30 day history of bronchitis symptoms presents to the emergency room with wheezing, cough, shortness of breath, and hypoxemia. * Symptoms and history are consistent with acute exacerbation of COPD. * Past medical history consistent with hypothyroidism, hypertension, and glaucoma Plan * Continue IV Solu-Medrol today and start back on prednisone tomorrow. * Rocephin 2 g now and every 24 hours * DuoNeb every 6 hours * albuterol nebulizer every 2 hours when necessary * Offered nicotine replacement but she declined * Restart home meds * CBC, CMP, magnesium in the morning. * CODE STATUS: Full code * VTE prophylaxis: Lovenox 40 mg daily * Length of stay likely 3 days.
[2018-10-07] MEDS: Latanoprost 0.005% Ophth Soln 2.5 ML Bottle EYEBOTH SCH (20:52)
[2018-10-07] MEDS: Potassium Chloride 20 MEQ Tab.ER PO SCH (20:52)
[2018-10-08] MEDS: Albuterol/Ipratropium 3.0-0.5 MG/3 ML Neb Soln NEB SCH ×4 (02:09→21:20)
[2018-10-08] MEDS: methylPREDNISolone Sodium Succinate 40 MG/1 ML SDV IVPUSH SCH ×2 (05:55→11:22)
[2018-10-08] MEDS: Levothyroxine 150 MCG Tab PO SCH (06:00)
[2018-10-08] MEDS: Metoprolol Succinate 50 MG Tab.ER PO SCH (08:28)
[2018-10-08] MEDS: Hydrochlorothiazide 12.5 MG Cap PO SCH (08:28)
[2018-10-08] MEDS: Multivitamins with Minerals/Folic Acid/Lutein/Zeaxanth Tab PO SCH (08:28)
[2018-10-08] MEDS: Aspirin 81 MG Tab.EC PO SCH (08:29)
[2018-10-08] MEDS: amLODIPine 5 MG Tab PO SCH (08:29)
[2018-10-08] MEDS: Lisinopril 20 MG Tab PO SCH (08:29)
[2018-10-08] MEDS: Enoxaparin 40 MG/0.4 ML Syringe SUBCUT SCH (08:30)
[2018-10-08] MEDS: Timolol Maleate 0.25% Ophth Soln 5 ML Bottle EYEBOTH SCH (08:31)
[2018-10-08] MEDS: cefTRIAXone 2 GM in Sodium Chloride 0.9% 100 ML IV SCH (11:22)
[2018-10-08] MEDS: Potassium Chloride 20 MEQ Tab.ER PO SCH (20:15)
[2018-10-08] MEDS: Latanoprost 0.005% Ophth Soln 2.5 ML Bottle EYEBOTH SCH (20:15)
--- NOTE | 2018-10-08 20:47 | PCM.PN ---
- General Info Date of Service: 10/08/18 Admission Dx/Problem (Free Text): Admission Diagnosis/Problem Admission Diagnosis/Problem Acute bronchitis 10/08/18 doing better this am on solumedrol and nebs q 4-6 / tachicardic with activity / no stridor but irritating cough / symptomatic acutely since in hotel room 4 weeks ago and then yellow sputum and increasingly severe nicolas and sob and wheezing . no cv issues and hx of graves with radioablation of thyriod + a light smoker by hx . no pulm problems previously / father severe copd victim screen sent for alpha one antytrypsin def. p.e vss sats borderline lungs few wheezes and poor air exchange thoat normal cor rrr 110 abd benign legs wnl o.2 off assess copd and acute bronchitis treated with steriods nebs and rochepin and responding . plan decrease steriods to po prednisone but suspect will need mmore than 5 days nebs and consider dc home if cont to improve boh - Patient Data Vitals - Most Recent: Last Vital Signs Temp 36.7 C 10/08/18 20:00 Pulse 67 10/08/18 20:00 Resp 16 10/08/18 20:00 BP 136/101 H 10/08/18 20:00 Pulse Ox 93 L 10/08/18 20:00 Weight - Most Recent: 97.636 kg I&O - Last 24 Hours: Intake & Output 10/08/18 10/08/18 10/08/18 06:59 14:59 22:59 Intake Total 2189 917 2502 Output Total 2200 1500 Balance -1000 160 195 Lab Results Last 24 Hours: Laboratory Results - last 24 hr 10/08/18 10/08/18 Range/Units 04:30 04:30 WBC 14.99 H (3.98-10.04) K/mm3 RBC 4.91 (3.98-5.22) M/mm3 Hgb 15.7 (11.2-15.7) gm/L Hct 44.6 (34.1-44.9) % MCV 90.8 (79.4-94.8) fl MCH 32.0 (25.6-32.2) pg MCHC 35.2 (32.2-35.5) g/dl RDW Std Deviation 42.3 (36.4-46.3) fL Plt Count 310 (182-369) K/mm3 MPV 11.4 (9.4-12.3) fl Neut % (Auto) 94.2 H (34.0-71.1) % Lymph % (Auto) 4.1 L (19.3-51.7) % [place] % (Auto) 1.5 L (4.7-12.5) % Eos % (Auto) 0 L (0.7-5.8) Baso % (Auto) 0.0 L (0.1-1.2) % Neut # (Auto) 14.12 H (1.56-6.13) K/mm3 Lymph # (Auto) 0.61 L (1.18-3.74) K/mm3 [place] # (Auto) 0.23 L (0.24-0.36) K/mm3 Eos # (Auto) 0.00 L (0.04-0.36) K/mm3 Baso # (Auto) 0.00 L (0.01-0.08) K/mm3 Manual Slide Review Abnormal smear Sodium 139 (136-145) mEq/L Potassium 3.6 (3.5-5.1) mEq/L Chloride 104 (98-107) mEq/L Carbon Dioxide 23 (21-32) mEq/L Anion Gap 15.6 H (5-15) BUN 27 H (7-18) mg/dL Creatinine 0.8 (0.55-1.02) mg/dL Est Cr Clr Drug Dosing 82.06 mL/min Estimated GFR (MDRD) > 60 (>60) mL/min BUN/Creatinine Ratio 33.8 H (14-18) Glucose 135 H (74-106) mg/dL Calcium 9.8 (8.5-10.1) mg/dL Magnesium 2.0 (1.8-2.4) mg/dl Med Orders - Current: Current Medications Albuterol (Proventil Neb Soln) 2.5 mg NEB Q2H PRN PRN Reason: Wheezing Albuterol/Ipratropium (Duoneb 3.0-0.5 Mg/3 Ml) 3 ml NEB Q6HRRT [facility] Last Admin: 10/08/18 14:29 Dose: 3 ml Amlodipine Besylate (Norvasc) 5 mg PO DAILY [facility] Last Admin: 10/08/18 08:29 Dose: 5 mg Amoxicillin/Clavulanate Potassium (Augmentin 875 Mg/125 Mg) 1 tab PO Q12HR [facility] Stop: 10/16/18 09:01 Aspirin (Halfprin) 81 mg PO DAILY [facility] Last Admin: 10/08/18 08:29 Dose: 81 mg Enoxaparin Sodium (Lovenox) 40 mg SUBCUT DAILY [facility] Last Admin: 10/08/18 08:30 Dose: 40 mg Hydrochlorothiazide (Hydrochlorothiazide) 37.5 mg PO DAILY [facility] Last Admin: 10/08/18 08:28 Dose: 37.5 mg Latanoprost (Xalatan 0.005% Ophth Soln) 0 ml EYEBOTH BEDTIME [facility] Last Admin: 10/08/18 20:15 Dose: 1 drop Levothyroxine Sodium (Levothyroxine) 150 mcg PO 0700 [facility] Last Admin: 10/08/18 06:00 Dose: 150 mcg Lisinopril (Prinivil) 20 mg PO DAILY [facility] Last Admin: 10/08/18 08:29 Dose: 20 mg Metoprolol Succinate (Toprol Xl) 200 mg PO DAILY [facility] Last Admin: 10/08/18 08:28 Dose: 200 mg Potassium Chloride (Klor-Con M20) 20 meq PO BEDTIME [facility] Last Admin: 10/08/18 20:15 Dose: 20 meq Prednisone (Prednisone) 20 mg PO WITHBREAKFAST [facility] Stop: 10/12/18 07:01 Timolol Maleate (Timoptic 0.25% Ophth Soln) 0 ml EYEBOTH DAILY [facility] Last Admin: 10/08/18 08:31 Dose: 1 drop Vit A/Vit C/Vit E/Selen/Cu/Zn/Lutei (Icaps Mv) 1 tab PO DAILY [facility] Last Admin: 10/08/18 08:28 Dose: 1 tab Discontinued Medications Albuterol/Ipratropium (Duoneb 3.0-0.5 Mg/3 Ml) Confirm Administered Dose 3 ml .ROUTE .STK-MED ONE Stop: 10/06/18 04:08 Last Admin: 10/06/18 04:15 Dose: Not Given Albuterol/Ipratropium (Duoneb 3.0-0.5 Mg/3 Ml) 3 ml NEB ONETIME ONE Stop: 10/06/18 04:10 Last Admin: 10/06/18 04:15 Dose: 3 ml Albuterol/Ipratropium (Duoneb 3.0-0.5 Mg/3 Ml) Confirm Administered Dose 3 ml .ROUTE .STK-MED ONE Stop: 10/06/18 06:23 Last Admin: 10/06/18 06:27 Dose: 3 ml Albuterol/Ipratropium (Duoneb 3.0-0.5 Mg/3 Ml) 3 ml NEB ONETIME ONE Stop: 10/06/18 06:16 Last Admin: 10/06/18 08:53 Dose: Not Given Albuterol/Ipratropium (Duoneb 3.0-0.5 Mg/3 Ml) 3 ml NEB Q4HRRT [facility] Last Admin: 10/07/18 09:07 Dose: 3 ml Budesonide (Pulmicort) 0.5 mg NEB ONETIME ONE Stop: 10/06/18 04:43 Last Admin: 10/06/18 04:53 Dose: 0.5 mg Ceftriaxone Sodium (Rocephin) 2 gm IVPUSH Q24H [facility] Last Admin: 10/06/18 12:02 Dose: Not Given Ceftriaxone Sodium 2 gm/ (Sodium Chloride) 100 mls @ 200 mls/hr IV Q24H [facility] Last Admin: 10/08/18 11:22 Dose: 200 mls/hr Methylprednisolone Sodium Succinate (Solu-Medrol) 125 mg IVPUSH ONETIME ONE Stop: 10/06/18 05:09 Last Admin: 10/06/18 05:29 Dose: 125 mg Methylprednisolone Sodium Succinate (Solu-Medrol) 60 mg IVPUSH Q6H [facility] Last Admin: 10/08/18 11:22 Dose: 60 mg Non-Formulary Medication (Hydrochlorothiazide [Hydrochlorothiazide]) 12.5 mg PO DAILY [facility] Last Admin: 10/06/18 12:03 Dose: Not Given Non-Formulary Medication (Lisinopril/Hydrochlorothiazide [Lisinopril-Hctz 20-25 Mg Tab]) 1 tab PO DAILY [facility] Last Admin: 10/06/18 12:03 Dose: Not Given Potassium Chloride (Klor-Con M20) 20 meq PO ONETIME ONE Stop: 10/06/18 09:31 Last Admin: 10/06/18 10:18 Dose: 20 meq Potassium Chloride (Klor-Con M20) 40 meq PO ONETIME ONE Stop: 10/07/18 07:31 Last Admin: 10/07/18 08:45 Dose: 40 meq - Exam Quality Assessment: Supplemental Oxygen General: Alert, Oriented HEENT: Pupils Equal, Pupils Reactive, EOMI, Mucous Membr. Moist/[place] Neck: Supple Lungs: Decreased Breath Sounds, Wheezing. No: Clear to Auscultation, Normal Respiratory Effort Cardiovascular: Regular Rate, Regular Rhythm, Tachycardia GI/Abdominal Exam: Normal Bowel Sounds, Soft, Non-Tender, No Organomegaly, No Distention, No Abnormal Bruit, No Mass, Pelvis Stable (Female) Exam: Normal External Exam, Normal Speculum Exam, Normal Bimanual Exam Back Exam: Normal Inspection, Full Range of Motion Extremities: Normal Inspection, Normal Range of Motion, Non-Tender, No Pedal Edema, Normal Capillary Refill Skin: Warm, Dry, Intact Wound/Incisions: Healing Well Neurological: No New Focal Deficit Psy/Mental Status: Alert, Normal Affect, Normal Mood - Problem List & Annotations (1) Acute bronchitis SNOMED Code(s): 67912277 Code(s): J20.9 - ACUTE BRONCHITIS, UNSPECIFIED Status: Acute Current Visit: Yes Qualifiers: Bronchitis organism: unspecified organism Qualified Code(s): J20.9 - Acute bronchitis, unspecified (2) Acute exacerbation of chronic obstructive pulmonary disease (COPD) SNOMED Code(s): 848377336 Code(s): J44.1 - CHRONIC OBSTRUCTIVE PULMONARY DISEASE W (ACUTE) EXACERBATION Status: Acute Priority: Medium Current Visit: Yes Onset Date: 10/08/18 Annotation/Comment:: should have ct scan as outpatient (3) Hypoxemia SNOMED Code(s): 877433949 Code(s): R09.02 - HYPOXEMIA Status: Acute Priority: Medium Current Visit: Yes Onset Date: 10/08/18 (4) History of smoking SNOMED Code(s): 202881955 Code(s): Z87.891 - PERSONAL HISTORY OF NICOTINE DEPENDENCE Status: Acute Priority: Medium Current Visit: No Onset Date: 10/08/18 Annotation/Comment :: non smoker now denies need for nicotine patch /gum - Problem List Review Problem List Initiated/Reviewed/Updated: Yes - My Orders Last 24 Hours: My Active Orders 10/08/18 13:20 [id number] PHENOTYP [REF] Routine [id number], SERUM [REF] Routine 10/09/18 07:00 predniSONE 20 mg PO WITHBREAKFAST 10/09/18 09:00 Amoxicillin/Clavulanate K [Augmentin 875 MG/125 MG] 1 tab PO Q12HR - Plan Plan:: Assessment * 58-year-old female who recently stopped smoking with a 30 day history of bronchitis symptoms presents to the emergency room with wheezing, cough, shortness of breath, and hypoxemia. * Symptoms and history are consistent with acute exacerbation of COPD. * Past medical history consistent with hypothyroidism, hypertension, and glaucoma Plan see orders boh
[2018-10-09] MEDS: Albuterol/Ipratropium 3.0-0.5 MG/3 ML Neb Soln NEB SCH ×3 (03:16→14:31)
[2018-10-09] MEDS: Levothyroxine 150 MCG Tab PO SCH (06:18)
[2018-10-09] MEDS ORDERED: predniSONE 20 MG Tab PO SCH (07:00)
[2018-10-09] MEDS: Multivitamins with Minerals/Folic Acid/Lutein/Zeaxanth Tab PO SCH (08:08)
[2018-10-09] MEDS: Metoprolol Succinate 50 MG Tab.ER PO SCH (08:09)
[2018-10-09] MEDS: Lisinopril 20 MG Tab PO SCH (08:10)
[2018-10-09] MEDS: Enoxaparin 40 MG/0.4 ML Syringe SUBCUT SCH (08:10)
[2018-10-09] MEDS: Timolol Maleate 0.25% Ophth Soln 5 ML Bottle EYEBOTH SCH (08:11)
[2018-10-09] MEDS: Hydrochlorothiazide 12.5 MG Cap PO SCH (08:11)
[2018-10-09] MEDS: amLODIPine 5 MG Tab PO SCH (08:11)
[2018-10-09] MEDS: Aspirin 81 MG Tab.EC PO SCH (08:11)
[2018-10-09] MEDS ORDERED: Amoxicillin/Clavulanate K 875-125 MG Tab PO SCH (09:00)
[2018-10-09] MEDS ORDERED: predniSONE 20 MG Tab PO ONE (09:41)
[2018-10-09 12:47] VITALS: BP 120/75
--- NOTE | 2018-10-09 13:09 | PCM.DCSUM1 ---
Discharge Summary - Hospital Course Free Text/Narrative:: 58 year old female with chronic lung changes consistent with emphysema was treated for acute bronchitis/COPD exacerbation. The patient was discharged on Prednisone, Nebs and Augmentin. The follow up after DC will be with her PCP followed by Pulmonary, ALBERT. The patient does not require O2. She has two prescriptions requiring Neb treatments. HPI Initial Comments: 58-year-old female with increasing shortness of breath and cough for the last 30 days. Patient was seen on September 16 by the clinic and treated with prednisone, Z-Flaco, albuterol for bronchitis. Patient returned to the clinic couple of weeks later after only having had moderate improvement and placed on doxycycline. Patient stopped smoking 2 months ago, but has been smoking off and on since she was a teenager. She has no history of lung disease previously. This morning patient had significant worsening of her shortness of breath and came into the emergency room. Patient was found to have a pulse ox in the 80s and after breathing treatments and steroids it did not improve enough to send her home. Currently patient states she is feeling much better and she has 2 L nasal cannula O2. She denies any fever, chills, or night sweats. She denies any productive sputum. Chest x-ray done in the ER showed no infiltrate. Diagnosis: Stroke: No - Discharge Data Discharge Date: 10/09/18 Discharge Disposition: Home, Self-Care 01 Condition: Good - Patient Instructions Diet: Usual Diet as Tolerated Activity: As Tolerated Driving: Do Not Drive Showering/Bathing: May Shower Notify Provider of: Fever, Increased Pain - Discharge Plan *PRESCRIPTION DRUG MONITORING PROGRAM REVIEWED*: Not Applicable *COPY OF PRESCRIPTION DRUG MONITORING REPORT IN PATIENT MITZI: Not Applicable Prescriptions/Med Rec: Albuterol [Proventil Neb Soln] 2.5 mg NEB Q4HRRT PRN #120 neb PRN Reason: Wheezing Amoxicillin/Clavulanate K [Augmentin 875-125 MG] 1 tab PO Q12HR #14 tablet Albuterol/Ipratropium [DuoNeb 3.0-0.5 MG/3 ML] 3 ml NEB Q6HRRT #120 neb Home Medications: Home Meds Aspirin 81 mg PO DAILY 01/21/18 [History] Bimatoprost [LUMIGAN 0.01% Ophth Soln] 1 drop EYEBOTH BEDTIME 01/21/18 [History] Levothyroxine 150 mg PO 0700 01/21/18 [History] Metoprolol Succinate 200 mg PO DAILY 01/21/18 [History] Timolol Maleate [Timoptic 0.25% Ophth Soln] 1 drop EYEBOTH DAILY 01/21/18 [ History] hydroCHLOROthiazide [Hydrochlorothiazide] 12.5 mg PO DAILY 01/21/18 [History] Lisinopril/Hydrochlorothiazide [Lisinopril-Hctz 20-25 mg Tab] 1 tab PO DAILY [History] Lutein/Minerals/Vit A,C & E [Ocuvite] 1 tab PO DAILY 10/06/18 [History] amLODIPine Besylate [Amlodipine Besylate] 5 mg PO DAILY 10/06/18 [History] Albuterol [Proventil Neb Soln] 2.5 mg NEB Q4HRRT PRN #120 neb 10/09/18 [Rx] Albuterol/Ipratropium [DuoNeb 3.0-0.5 MG/3 ML] 3 ml NEB Q6HRRT #120 neb [Rx] Amoxicillin/Clavulanate K [Augmentin 875-125 MG] 1 tab PO Q12HR #14 tablet 10/09 [Rx] predniSONE [Prednisone] 40 mg PO DAILY 10/09/18 [History] Oxygen Therapy Mode: Room Air Patient Handouts: Steps to Quit Smoking, Acute Bronchitis, Adult Referrals: Leonel Caldwell PA-C [Primary Care Provider] - 10/11/18 4:15 pm (Please check in at 4:00pm. You will be seeing Stacey Kinsey as Leonel is out of the clinic.) - Discharge Summary/Plan Comment DC Time >30 min.: No Discharge Summary/Plan Comment: Discharge Plan: PCP follow up Sunday, 10/11 @ 1600 hour. Pulmonary appt, TBA; patient will need to call.Assessment Discharge prognosis: Good Impression: * 58-year-old female who recently stopped smoking with a 30 day history of bronchitis symptoms presents to the emergency room with wheezing, cough, shortness of breath, and hypoxemia. * Symptoms and history are consistent with acute exacerbation of COPD. * Past medical history consistent with hypothyroidism, hypertension, and glaucoma Plan: * Continue IV Solu-Medrol today and start back on prednisone tomorrow. * Rocephin 2 g now and every 24 hours * DuoNeb every 4 hours today and decreased to every 6 hours if improving by this evening * Offered nicotine replacement but she declined * Restart home meds * CBC, CMP, magnesium in the morning. * CODE STATUS: Full code * VTE prophylaxis: Lovenox 40 mg daily * Length of stay likely 3 days. - General Info Date of Service: 10/06/18 Functional Status: Reports: Pain Controlled, Tolerating Diet, Ambulating, Urinating - Review of Systems General: Reports: No Symptoms HEENT: Reports: No Symptoms Pulmonary: Reports: No Symptoms Cardiovascular: Reports: No Symptoms Gastrointestinal: Reports: No Symptoms Genitourinary: Reports: No Symptoms Musculoskeletal: Reports: No Symptoms Skin: Reports: No Symptoms Neurological: Reports: No Symptoms Psychiatric: Reports: No Symptoms - Patient Data Vitals - Most Recent: Last Vital Signs Temp 36.6 C 10/09/18 12:00 Pulse 77 10/09/18 09:38 Resp 20 10/09/18 12:00 BP 120/75 10/09/18 12:00 Pulse Ox 90 L 10/09/18 12:00 Weight - Most Recent: 97.579 kg I&O - Last 24 hours: Intake & Output 10/08/18 10/09/18 10/09/18 22:59 06:59 14:59 Intake Total 1695 1200 180 Output Total 1500 3100 Balance 195 -1900 180 Med Orders - Current: Current Medications Albuterol (Proventil Neb Soln) 2.5 mg NEB Q2H PRN PRN Reason: Wheezing Albuterol/Ipratropium (Duoneb 3.0-0.5 Mg/3 Ml) 3 ml NEB Q6HRRT [facility] Last Admin: 10/09/18 09:14 Dose: 3 ml Amlodipine Besylate (Norvasc) 5 mg PO DAILY [facility] Last Admin: 10/09/18 08:11 Dose: 5 mg Amoxicillin/Clavulanate Potassium (Augmentin 875 Mg/125 Mg) 1 tab PO Q12HR [facility] Stop: 10/16/18 09:01 Last Admin: 10/09/18 08:09 Dose: 1 tab Aspirin (Halfprin) 81 mg PO DAILY [facility] Last Admin: 10/09/18 08:11 Dose: 81 mg Enoxaparin Sodium (Lovenox) 40 mg SUBCUT DAILY [facility] Last Admin: 10/09/18 08:10 Dose: 40 mg Hydrochlorothiazide (Hydrochlorothiazide) 37.5 mg PO DAILY [facility] Last Admin: 10/09/18 08:11 Dose: 37.5 mg Latanoprost (Xalatan 0.005% Ophth Soln) 0 ml EYEBOTH BEDTIME [facility] Last Admin: 10/08/18 20:15 Dose: 1 drop Levothyroxine Sodium (Levothyroxine) 150 mcg PO 0700 [facility] Last Admin: 10/09/18 06:18 Dose: 150 mcg Lisinopril (Prinivil) 20 mg PO DAILY [facility] Last Admin: 10/09/18 08:10 Dose: 20 mg Metoprolol Succinate (Toprol Xl) 200 mg PO DAILY [facility] Last Admin: 10/09/18 08:09 Dose: 200 mg Potassium Chloride (Klor-Con M20) 20 meq PO BEDTIME [facility] Last Admin: 10/08/18 20:15 Dose: 20 meq Prednisone (Prednisone) 20 mg PO WITHBREAKFAST [facility] Stop: 10/12/18 07:01 Last Admin: 10/09/18 06:18 Dose: 20 mg Timolol Maleate (Timoptic 0.25% Ophth Soln) 0 ml EYEBOTH DAILY [facility] Last Admin: 10/09/18 08:11 Dose: 1 drop Vit A/Vit C/Vit E/Selen/Cu/Zn/Lutei (Icaps Mv) 1 tab PO DAILY [facility] Last Admin: 10/09/18 08:08 Dose: 1 tab Discontinued Medications Albuterol/Ipratropium (Duoneb 3.0-0.5 Mg/3 Ml) Confirm Administered Dose 3 ml .ROUTE .STK-MED ONE Stop: 10/06/18 04:08 Last Admin: 10/06/18 04:15 Dose: Not Given Albuterol/Ipratropium (Duoneb 3.0-0.5 Mg/3 Ml) 3 ml NEB ONETIME ONE Stop: 10/06/18 04:10 Last Admin: 10/06/18 04:15 Dose: 3 ml Albuterol/Ipratropium (Duoneb 3.0-0.5 Mg/3 Ml) Confirm Administered Dose 3 ml .ROUTE .STK-MED ONE Stop: 10/06/18 06:23 Last Admin: 10/06/18 06:27 Dose: 3 ml Albuterol/Ipratropium (Duoneb 3.0-0.5 Mg/3 Ml) 3 ml NEB ONETIME ONE Stop: 10/06/18 06:16 Last Admin: 10/06/18 08:53 Dose: Not Given Albuterol/Ipratropium (Duoneb 3.0-0.5 Mg/3 Ml) 3 ml NEB Q4HRRT [facility] Last Admin: 10/07/18 09:07 Dose: 3 ml Budesonide (Pulmicort) 0.5 mg NEB ONETIME ONE Stop: 10/06/18 04:43 Last Admin: 10/06/18 04:53 Dose: 0.5 mg Ceftriaxone Sodium (Rocephin) 2 gm IVPUSH Q24H [facility] Last Admin: 10/06/18 12:02 Dose: Not Given Ceftriaxone Sodium 2 gm/ (Sodium Chloride) 100 mls @ 200 mls/hr IV Q24H [facility] Last Admin: 10/08/18 11:22 Dose: 200 mls/hr Methylprednisolone Sodium Succinate (Solu-Medrol) 125 mg IVPUSH ONETIME ONE Stop: 10/06/18 05:09 Last Admin: 10/06/18 05:29 Dose: 125 mg Methylprednisolone Sodium Succinate (Solu-Medrol) 60 mg IVPUSH Q6H [facility] Last Admin: 10/08/18 11:22 Dose: 60 mg Non-Formulary Medication (Hydrochlorothiazide [Hydrochlorothiazide]) 12.5 mg PO DAILY [facility] Last Admin: 10/06/18 12:03 Dose: Not Given Non-Formulary Medication (Lisinopril/Hydrochlorothiazide [Lisinopril-Hctz 20-25 Mg Tab]) 1 tab PO DAILY [facility] Last Admin: 10/06/18 12:03 Dose: Not Given Potassium Chloride (Klor-Con M20) 20 meq PO ONETIME ONE Stop: 10/06/18 09:31 Last Admin: 10/06/18 10:18 Dose: 20 meq Potassium Chloride (Klor-Con M20) 40 meq PO ONETIME ONE Stop: 10/07/18 07:31 Last Admin: 10/07/18 08:45 Dose: 40 meq Prednisone (Prednisone) 20 mg PO ONETIME ONE Stop: 10/09/18 09:42 Last Admin: 10/09/18 10:32 Dose: 20 mg - Exam General: Reports: Alert, Oriented, Cooperative, No Acute Distress HEENT: Reports: Pupils Equal, Pupils Reactive, EOMI Neck: Reports: Supple, Trachea Midline Lungs: Reports: Clear to Auscultation, Normal Respiratory Effort Cardiovascular: Reports: Regular Rate, Regular Rhythm GI/Abdominal Exam: Normal Bowel Sounds, Soft, Non-Tender, No Organomegaly, No Distention (Female) Exam: Deferred Rectal (Female) Exam: Deferred Back Exam: Reports: Normal Inspection Extremities: Normal Inspection, Non-Tender, Normal Capillary Refill Skin: Reports: Warm, Dry Neurological: Reports: No New Focal Deficit, Normal Gait, Normal Speech Psy/Mental Status: Reports: Alert, Normal Affect, Normal Mood
== END 2018-10-09 15:33 | disposition home or self-care (01) | DRG 140 ==
LOC: JD.ED 03:09 → JD.MS 06:37
PROVIDERS: ADMIT Family Medicine; ATTEND Family Medicine
DX: J43.9 Emphysema, unspecified (principal); J20.9 Acute bronchitis, unspecified; H40.9 Unspecified glaucoma; J30.9 Allergic rhinitis, unspecified; I10 Essential (primary) hypertension; E03.9 Hypothyroidism, unspecified; E66.9 Obesity, unspecified; R09.02 Hypoxemia; Z87.891 Personal history of nicotine dependence; Z79.82 Long term (current) use of aspirin; Z79.899 Other long term (current) drug therapy; Z68.31 Body mass index [BMI] 31.0-31.9, adult
CPT/HCPCS: 36415; 71046; 71046-26; 80048; 80053; 82103; 82104; 83735; 83880; 84484; 85025; 86140; 93005; 93010; 94640; 94667; 94668; 94761; 96374; 99285; 99285-25; A9270-GY; J0696; J1650; J2920; J2930; J7030; J7620-GY

== ENCOUNTER 2019-09-12 12:04 | Inpatient (IN) | payer BC ==
--- NOTE | 2019-09-12 12:25 | EDM.PDOC ---
ED HPI GENERAL MEDICAL PROBLEM - General Chief Complaint: Respiratory Problem Stated Complaint: [facility] Time Seen by Provider: 09/12/19 12:25 Source of Information: Reports: Patient History Limitations: Reports: No Limitations - History of Present Illness INITIAL COMMENTS - FREE TEXT/NARRATIVE: 59-year-old female presents to the ED per ambulance. She reports that she developed an upper respiratory tract infection with sinus congestion postnasal drip about 2 weeks ago. Last Sunday, September 05 she developed a cough and increased wheezing. She has a history of mild COPD. She is not on oxygen at home. Over the last 2 days she is developed increased thick secretions which are difficult to expectorate and today developed severe increased wheezing with drop in her pulse oximeter at home down to 72%. She then felt she was unable to expectorate a phlegm ball in her upper airway and she just about fainted. Her came home for lunch and she asked him to call the ambulance. Paramedics gave her 1 treatment of albuterol in route to the hospital and Solu- Medrol 125 mg IV. She states this did help immensely. They also placed on oxygen 2 L/min which achieve sats of 93%. She is never been admitted to the hospital for her COPD. Highly unlikely that she has been exposed to COVID. She has been inside for the last 2-1/2 weeks. Her works outside the home but states he works in a confined area in a [employer] and has been using precautions. Onset: Gradual (Gradually getting worse over the last 2 weeks. Difficulty expectorating sputum the last 48 hours with increased wheezing and shortness of breath) Onset Date: 08/30/19 (Worse the last 48 hours) Duration: Week(s):, Getting Worse Location: Reports: Chest (Rachelle breathing with increased wheezing and dyspnea and now hypoxia of the today.) Quality: Reports: Other Severity: Severe Improves with: Reports: Other (Ole. Proved with albuterol treatment in route to the hospital as well as oxygen) Worsens with: Reports: Movement Context: Denies: Activity, Exercise, Lifting ([place]), Sick Contact, Trauma, Other Associated Symptoms: Reports: Chest Pain, Cough, cough w sputum, Loss of Appetite, Malaise, Shortness of Breath, Weakness. Denies: No Other Symptoms ( Upper chest pain from coughing so much), Confusion, Diaphoresis, Fever/Chills, Headaches, Nausea/Vomiting, Rash, Seizure, Syncope Treatments KEY RINGER: Reports: Other (see below) Other Treatments KEY RINGER: solumedrol - Related Data Allergies Allergy/AdvReac Type Severity Reaction Status Date / Time No Known Allergies Allergy Verified 10/06/18 04:16 Home Meds: Home Meds Aspirin 81 mg PO DAILY 01/21/18 [History] Bimatoprost [LUMIGAN 0.01% Ophth Soln] 1 drop EYEBOTH BEDTIME 01/21/18 [History] Levothyroxine 150 mg PO 0700 01/21/18 [History] Metoprolol Succinate 200 mg PO DAILY 01/21/18 [History] timoloL maleate [Timoptic 0.25% Ophth Soln] 1 drop EYEBOTH DAILY 01/21/18 [ History] Lisinopril/Hydrochlorothiazide [Lisinopril-Hctz 20-25 mg Tab] 1 tab PO DAILY [History] Lutein/Minerals/Vit A,C & E [Ocuvite] 1 tab PO DAILY 10/06/18 [History] amLODIPine Besylate [Amlodipine Besylate] 5 mg PO DAILY 10/06/18 [History] Albuterol [Proventil Neb Soln] 2.5 mg NEB Q4HRRT PRN #120 neb 10/09/18 [Rx] Albuterol/Ipratropium [DuoNeb 3.0-0.5 MG/3 ML] 3 ml NEB Q6HRRT #120 neb [Rx] Amoxicillin/Clavulanate K [Augmentin 875-125 MG] 1 tab PO Q12HR #14 tablet 10/09 [Rx] predniSONE [Prednisone] 40 mg PO DAILY 10/09/18 [History] Past Medical History HEENT History: Reports: Allergic Rhinitis, Glaucoma, Other (See Below) Other HEENT History: dry eye, wears glasses and contacts Cardiovascular History: Reports: Heart Murmur, Hypertension, SOB on Exertion Respiratory History: Reports: Bronchitis, Recurrent Neurological History: Reports: Concussion, Other (See Below) Other Neuro History: 1995 Endocrine/Metabolic History: Reports: Hypothyroidism, Obesity/BMI 30+ Other Endocrine/Metabolic History: pt states that she has Graves Disease Hematologic History: Reports: Anemia - Infectious Disease History Infectious Disease History: Reports: Chicken Pox, Measles, Mumps, Shingles - Past Surgical History HEENT Surgical History: Reports: None Cardiovascular Surgical History: Reports: None Endocrine Surgical History: Reports: Other (See Below) Other Endocrine Surgeries/Procedures: thyroid ablation Neurological Surgical History: Reports: None Social & Family History - Family History Cardiac: Reports: Hypertension Respiratory: Reports: Other (See Below) Other Respiratory Family Hisory: emphysema - Tobacco Use Smoking Status *Q: Former Smoker Used Tobacco, but Quit: Yes Month/Year Tobacco Last Used: 2019 - Caffeine Use Caffeine Use: Reports: Coffee, Tea - Living Situation & Occupation Living situation: Reports: , with Spouse Occupation: Unemployed ED ROS GENERAL - Review of Systems Review Of Systems: See Below Constitutional: Reports: Malaise, Weakness, Fatigue, Decreased Appetite. Denies : Fever, Chills, Weight Loss HEENT: Reports: Glasses Respiratory: Reports: Shortness of Breath, Wheezing, Cough, Sputum. Denies: Pleuritic Chest Pain, Hemoptysis Cardiovascular: Reports: Chest Pain (Her chest pain from coughing so much), Blood Pressure Problem, Dyspnea on Exertion, Lightheadedness (Lightheadedness to the point of near syncope this morning which precipitated calling the ambulance). Denies: Claudication, Edema, Orthopnea, Palpitations Endocrine: Reports: Fatigue GI/Abdominal: Reports: Decreased Appetite. Denies: Nausea, Vomiting : Reports: Frequency, Incontinence (Stress incontinence) Musculoskeletal: Reports: Back Pain, Joint Pain (Knee and back pain at times) Skin: Reports: No Symptoms Neurological: Reports: No Symptoms Psychiatric: Reports: No Symptoms Hematologic/Lymphatic: Reports: No Symptoms Immunologic: Reports: No Symptoms ED EXAM, GENERAL - Physical Exam Exam: See Below Exam Limited By: No Limitations General Appearance: Alert, WD/WN, Anxious, Moderate Distress, Other ( Temperature is incorrect at 35.8 recording. Pulse is 86 and sinus. Respiratory was 22 with O2 sats of 92% on 2 L. BP is 154 123 which is likely an accurate as well as the pulse pressures too close together. ) Eye Exam: Bilateral Eye: Normal Inspection Ears: Normal TMs (No scleral icterus or blepharal pallor.) Nose: Nasal Swelling Throat/Mouth: Normal Inspection, Normal Lips, Normal Oropharynx (This are swollen bilaterally.) Head: Atraumatic, Normocephalic Neck: Normal Inspection, Supple, Non-Tender, Full Range of Motion. No: Carotid Bruit, Lymphadenopathy (L), Lymphadenopathy (R), Thyromegaly Respiratory/Chest: Respiratory Distress (Apneic.), Wheezing (Wheezing throughout all lung perez.). No: Lungs Clear, Normal Breath Sounds, No Accessory Muscle Use, Chest Non-Tender Cardiovascular: Normal Peripheral Pulses, Regular Rate, Rhythm, No Edema, No Gallop, No Murmur, No Rub Peripheral Pulses: 2+: Posterior Tibial (L), Posterior Tibial (R), Dorsalis Pedis (L), Dorsalis Pedis (R), 3+: Carotid (L), Carotid (R) GI/Abdominal: Normal Bowel Sounds, Soft, No Organomegaly (Minimal distention in the epigastrium due to aerophagia. I tympanitic to percussion), No Abnormal Bruit, No Mass, Distended Back Exam: Normal Inspection, Full Range of Motion. No: CVA Tenderness (L), CVA Tenderness (R) Extremities: Normal Inspection, Normal Range of Motion, Non-Tender, No Pedal Edema, Normal Capillary Refill Neurological: Alert, Oriented, CN II-XII Intact, Normal Cognition Psychiatric: Normal Affect, Normal Mood Skin Exam: Warm, Dry, Intact, Normal Color, No Rash EKG INTERPRETATION EKG Date: 09/12/19 Time: 12:56 Rhythm: NSR Rate (Beats/Min): 80 [place]: Normal P-Wave: Present QRS: Normal ST-T: Other QT: Prolonged (Borderline repolarization abnormality) EKG Interpretation Comments: Borderline ECG Course - Vital Signs Last Recorded V/S: Last Vital Signs Temp 35.8 C L 09/12/19 12:13 Pulse 86 09/12/19 12:13 Resp 22 H 09/12/19 12:13 BP 154/123 H 09/12/19 12:13 Pulse Ox 93 L 09/12/19 12:46 - Orders/Labs/Meds Orders: Active Orders 24 hr Category Date Time Status EKG Documentation Completion [RC] STAT Care 09/12/19 12:38 Active Oxygen Therapy [RC] ASDIRECTED Care 09/12/19 12:44 Active RT Aerosol Therapy [RC] ASDIRECTED Care 09/12/19 12:38 Active RT Aerosol Therapy [RC] ASDIRECTED Care 09/12/19 12:46 Active CORONAVIRUS COVID-19 PCR PHL Stat Lab 09/12/19 14:26 Ordered Potassium Chloride [KCl 10 MEQ in Water 100 ML] 10 meq Med 09/12/19 14:30 Active Premix Bag 1 bag IV Q1H Medication Orders Potassium Chloride 10 meq/ (Premix) 100 mls @ 100 mls/hr IV Q1H LEIF Stop: 09/12/19 17:29 Last Admin: 09/12/19 14:35 Dose: 100 mls/hr Labs: Laboratory Tests 09/12/19 09/12/19 09/12/19 Range/Units 13:05 13:05 13:05 WBC 11.51 H (3.98-10.04) K/mm3 RBC 5.07 (3.98-5.22) M/mm3 Hgb 15.6 (11.2-15.7) gm/dl Hct 44.0 (34.1-44.9) % MCV 86.8 D (79.4-94.8) fl MCH 30.8 (25.6-32.2) pg MCHC 35.5 (32.2-35.5) g/dl RDW Std Deviation 42.8 (36.4-46.3) fL Plt Count 335 (182-369) K/mm3 MPV 11.0 (9.4-12.3) fl Neutrophils % (Manual) 76 H (40-60) % Band Neutrophils % 0 (0-10) % Lymphocytes % (Manual) 12 L (20-40) % Atypical Lymphs % 0 % Monocytes % (Manual) 4 (2-10) % Eosinophils % (Manual) 8 H (0.7-5.8) % Basophils % (Manual) 0 L (0.1-1.2) Platelet Estimate Adequate RBC Morph Comment Normal ESR 18 (0-20) mm/hr Sodium 140 (136-145) mEq/L Potassium 3.1 L (3.5-5.1) mEq/L Chloride 102 (98-107) mEq/L Carbon Dioxide 26 (21-32) mEq/L Anion Gap 15.1 H (5-15) BUN 7 (7-18) mg/dL Creatinine 0.8 (0.55-1.02) mg/dL Est Cr Clr Drug Dosing 81.08 mL/min Estimated GFR (MDRD) > 60 (>60) mL/min BUN/Creatinine Ratio 8.8 L (14-18) Glucose 110 H (74-106) mg/dL Calcium 9.8 (8.5-10.1) mg/dL Magnesium (1.8-2.4) mg/dl Total Bilirubin 0.7 (0.2-1.0) mg/dL AST 60 H (15-37) U/L ALT 83 H (14-59) U/L Alkaline Phosphatase 83 (46-116) U/L Troponin I 0.027 (0.00-0.056) ng/mL C-Reactive Protein (<1.0) mg/dL NT-Pro-B Natriuret Pep (0-125) pg/mL Total Protein 7.6 (6.4-8.2) g/dl Albumin 3.9 (3.4-5.0) g/dl Globulin 3.7 gm/dL Albumin/Globulin Ratio 1.1 (1-2) TSH 3rd Generation (0.358-3.74) uIU/mL 09/12/19 09/12/19 Range/Units 13:05 13:05 WBC (3.98-10.04) K/mm3 RBC (3.98-5.22) M/mm3 Hgb (11.2-15.7) gm/dl Hct (34.1-44.9) % MCV (79.4-94.8) fl MCH (25.6-32.2) pg MCHC (32.2-35.5) g/dl RDW Std Deviation (36.4-46.3) fL Plt Count (182-369) K/mm3 MPV (9.4-12.3) fl Neutrophils % (Manual) (40-60) % Band Neutrophils % (0-10) % Lymphocytes % (Manual) (20-40) % Atypical Lymphs % % Monocytes % (Manual) (2-10) % Eosinophils % (Manual) (0.7-5.8) % Basophils % (Manual) (0.1-1.2) Platelet Estimate RBC Morph Comment ESR (0-20) mm/hr Sodium (136-145) mEq/L Potassium (3.5-5.1) mEq/L Chloride (98-107) mEq/L Carbon Dioxide (21-32) mEq/L Anion Gap (5-15) BUN (7-18) mg/dL Creatinine (0.55-1.02) mg/dL Est Cr Clr Drug Dosing mL/min Estimated GFR (MDRD) (>60) mL/min BUN/Creatinine Ratio (14-18) Glucose (74-106) mg/dL Calcium (8.5-10.1) mg/dL Magnesium 2.0 (1.8-2.4) mg/dl Total Bilirubin (0.2-1.0) mg/dL AST (15-37) U/L ALT (14-59) U/L Alkaline Phosphatase (46-116) U/L Troponin I (0.00-0.056) ng/mL C-Reactive Protein 0.4 (<1.0) mg/dL NT-Pro-B Natriuret Pep 98 (0-125) pg/mL Total Protein (6.4-8.2) g/dl Albumin (3.4-5.0) g/dl Globulin gm/dL Albumin/Globulin Ratio (1-2) TSH 3rd Generation 0.965 (0.358-3.74) uIU/mL Meds: Medications Generic Name Dose Route Start Last Admin Trade Name Freq PRN Reason Stop Dose Admin Potassium Chloride 10 meq/ 100 mls @ 100 mls/hr 09/12/19 14:30 09/12/19 14:35 Premix IV 09/12/19 17:29 100 mls/hr Q1H LEIF Administration Discontinued Medications Generic Name Dose Route Start Last Admin Trade Name Freq PRN Reason Stop Dose Admin Albuterol 7.5 mg 09/12/19 12:46 09/12/19 13:09 Proventil NEB 09/12/19 12:47 7.5 mg ONETIME ONE Administration Albuterol/Ipratropium 3 ml 09/12/19 12:36 09/12/19 12:49 Duoneb 3.0-0.5 Mg/3 Ml NEB 09/12/19 12:37 3 ml ONETIME ONE Administration - Radiology Interpretation Free Text/Narrative:: 59-year-old female presents to the ED per [facility] after she experienced a severe bout of dyspnea and sense of suffocation at home. She felt like she had a large amount of phlegm in her upper airway and she was unable to expectorate it. This caused a panic situation as she felt a strong sense of suffocation. She had her call the ambulance as he returned had returned home for lunch from work at the same time this occurred. Patient states she developed an upper respiratory tract infection with sinus congestion postnasal drip about 2 weeks ago. She has known COPD but is not on oxygen at home. Over the last week it is moved down into her lungs. It is particularly worse over the last 48 hours with increased thickened secretions and difficulty breathing and increased wheezing. Home nebulizer helps somewhat. Paramedics administered Solu-Medrol 125 mg IV and gave her albuterol treatment which seemed to alleviate her good deal of her symptoms. She is also been placed on oxygen at 2 L/min to achieve sats of 94%. When she is afebrile. It is unlikely that she has been exposed to COVID by history. Chest x-ray to be done portably. Routine labs to include a BNP to rule out any cardiac disease. - Re-Assessments/Exams Free Text/Narrative Re-Assessment/Exam: 09/12/19 13:19: Portable chest x-ray done portable reveals heart size and mediastinum to be within normal limits. Lungs are clear with no acute parenchymal changes. No signs of pneumonia. No pneumothorax. 09/12/19 14:10 White count is 11.51 with 76% neutrophils and no bands cells. Hemoglobin is 15.6 with hematocrit of 44.0. Platelet count is normal at 335, 000. Sed rate is 18. Sodium 140 with a potassium slightly low at 3.1. Chloride 102 with a bicarb of 26. Anion gap is 15.1. BUN is 7 with a creatinine of 0.8. GFR is greater than 60. Glucose is 110 with a calcium of 9.8. Magnesium is 2.0 bilirubin shows it to be 0.7. AST is 60 with ALT slightly elevated at 83. Alk phosphatase is normal at 83. Troponin I is less than 0.027. C-reactive protein is 0.4 BNP is 98. Total protein is 7.6 with an albumin fraction of 3.9 TSH is pending. Patient feels much improved although her sats are still only 92% on 2 L and I increased her to 3 L. She remains diffusely wheezy throughout all lung perez although she feels that she can now get a full deep breath. Therefore require admission to hospital for aggressive management of her asthma and COPD symptomatology with steroids and regular inhalational medications. At this time there is no sign of a bacterial infection. 09/12/19 14:[address] Carter on-call hospitalist with a view to admission to the hospital for treatment of exacerbation of COPD with suspect viral infection. The COVID screen will be carried out although it appears that she has not been exposed to her knowledge. Departure - Departure Time of Disposition: 15:03 Disposition: Admitted As Inpatient 68 Condition: Fair Clinical Impression: Asthma with COPD with exacerbation, Hypoxia - Discharge Information *PRESCRIPTION DRUG MONITORING PROGRAM REVIEWED*: Not Applicable *COPY OF PRESCRIPTION DRUG MONITORING REPORT IN PATIENT MITZI: Not Applicable Sepsis Event Note - Evaluation Sepsis Screening Result: No Definite Risk - Focused Exam Vital Signs: Vital Signs Temp Pulse Resp BP Pulse Ox Pulse Ox 09/12/19 12:46 93 L 09/12/19 12:38 93 L 09/12/19 12:13 35.8 C L 86 22 H 154/123 H 92 L Date Exam was Performed: 09/12/19 Time Exam was Performed: 15:02 - My Orders Last 24 Hours: My Active Orders 09/12/19 12:38 EKG Documentation Completion [RC] STAT RT Aerosol Therapy [RC] ASDIRECTED 09/12/19 12:44 Oxygen Therapy [RC] ASDIRECTED 09/12/19 12:46 RT Aerosol Therapy [RC] ASDIRECTED 09/12/19 14:26 CORONAVIRUS COVID-19 PCR PHL Stat 09/12/19 14:30 Potassium Chloride [KCl 10 MEQ in Water 100 ML] 10 meq Premix Bag 1 bag IV Q1H - Assessment/Plan Last 24 Hours: My Active Orders 09/12/19 12:38 EKG Documentation Completion [RC] STAT RT Aerosol Therapy [RC] ASDIRECTED 09/12/19 12:44 Oxygen Therapy [RC] ASDIRECTED 09/12/19 12:46 RT Aerosol Therapy [RC] ASDIRECTED 09/12/19 14:26 CORONAVIRUS COVID-19 PCR PHL Stat 09/12/19 14:30 Potassium Chloride [KCl 10 MEQ in Water 100 ML] 10 meq Premix Bag 1 bag IV Q1H
[2019-09-12] MEDS ORDERED: Albuterol/Ipratropium 3.0-0.5 MG/3 ML Neb Soln NEB ONE (12:36)
[2019-09-12] MEDS ORDERED: Albuterol 0.5% 2.5 MG/0.5 ML Neb Soln NEB ONE (12:46)
--- NOTE | 2019-09-12 14:03 | CR ---
Chest: Frontal view of the chest was obtained. Comparison: Prior chest x-ray of 10/06/18. Heart size and mediastinum are within normal limits for portable technique. Lungs are clear with no acute parenchymal change. Bony structures are unremarkable. Impression: 1. Nothing acute is appreciated on portable chest x-ray. Diagnostic code #1 This report was dictated in MDT
[2019-09-12] MEDS: Potassium Chloride 10 MEQ in Premix Bag 1 BAG IV SCH ×3 (14:35→19:48)
[2019-09-12] MEDS ORDERED: Sodium Chloride 0.9% 1,000 ML IV SCH (15:45)
[2019-09-12] MEDS ORDERED: Acetaminophen 325 MG Tab PO PRN (17:35)
--- NOTE | 2019-09-12 17:43 | PCM.HP.2 ---
H&P History of Present Illness - General Date of Service: 09/12/19 Admit Problem/Dx: Admission Diagnosis/Problem Admission Diagnosis/Problem COPD, Mild chronic obstructive pulmonary disease - History of Present Illness Initial Comments - Free Text/Narative: 59-year-old female with history of COPD hospitalized 1 time last September presents to the emergency department via [facility] secondary to severe shortness of breath. Patient states that 7 days ago she started with sinus congestion that then descended to her chest 4 days ago. 2 days ago she developed a cough and wheeze and then it became more severe and thick. This morning she coughed and felt like she was unable to expectorate what she had in her throat and her oxygen saturations dropped. She states this morning her oxygen saturations were 94% and by 11:00 they were 74%. Her came home and she asked him to call EMS. Patient has not been exposed to anyone with COVID and her works in a greenery but wears a mask. She stopped smoking over a year ago. She denies any fever, chills, night sweats, orthopnea , or PND. She does state that he she has had worsening shortness of breath on exertion. When EMS arrived they gave her 1 treatment of albuterol and in route to the [facility]. She states that that did improve her symptoms. In the emergency department she was placed on 2 L of O2 via nasal cannula and she achieved oxygen saturation of 94%. Chest x-ray was performed which showed no acute changes. Labs white count 11.51 with 76% neutrophils and no bands, hemoglobin 15.6, platelets 335, sed rate 18, sodium 140, potassium 3.1, bicarb 26, anion gap 15.1, normal renal function. Troponin 0 0.027, C-reactive protein 0.4, BNP 98. Patient was very wheezy throughout all lung perez and having difficulty getting a full breath. She was given continuous albuterol nebulizers which did help but not well enough to be able to be sent home. Patient was then admitted for exacerbation of COPD. - Related Data Allergies/Adverse Reactions: Allergies Allergy/AdvReac Type Severity Reaction Status Date / Time No Known Allergies Allergy Verified 09/12/19 18:43 Home Medications: Home Meds Aspirin 81 mg PO DAILY 01/21/18 [History] Levothyroxine 150 mcg PO 0700 01/21/18 [History] Metoprolol Succinate 200 mg PO 1700 01/21/18 [History] Lisinopril/Hydrochlorothiazide [Lisinopril-Hctz 20-25 mg Tab] 25 mg PO DAILY [History] Lutein/Minerals/Vit A,C & E [Ocuvite] 1 tab PO DAILY 10/06/18 [History] amLODIPine Besylate [Amlodipine Besylate] 5 mg PO DAILY 10/06/18 [History] Albuterol [Proventil Neb Soln] 2.5 mg NEB Q4HRRT PRN #120 neb 10/09/18 [Rx] Umeclidinium [place] [Incruse Ellipta*] 1 puff INH DAILY 09/12/19 [History] atorvaSTATin [Lipitor] 10 mg PO BEDTIME 09/12/19 [History] Past Medical History HEENT History: Reports: Allergic Rhinitis, Glaucoma, Other (See Below) Other HEENT History: dry eye, wears glasses and contacts Cardiovascular History: Reports: Heart Murmur, Hypertension, SOB on Exertion Respiratory History: Reports: Bronchitis, Recurrent Neurological History: Reports: Concussion, Other (See Below) Other Neuro History: 1995 Endocrine/Metabolic History: Reports: Hypothyroidism, Obesity/BMI 30+ Other Endocrine/Metabolic History: pt states that she has Graves Disease Hematologic History: Reports: Anemia - Infectious Disease History Infectious Disease History: Reports: Chicken Pox, Measles, Mumps, Shingles - Past Surgical History HEENT Surgical History: Reports: None Cardiovascular Surgical History: Reports: None Endocrine Surgical History: Reports: Other (See Below) Other Endocrine Surgeries/Procedures: thyroid ablation Neurological Surgical History: Reports: None Social & Family History - Family History Cardiac: Reports: Hypertension Respiratory: Reports: Other (See Below) Other Respiratory Family Hisory: emphysema - Tobacco Use Smoking Status *Q: Former Smoker Used Tobacco, but Quit: Yes Month/Year Tobacco Last Used: 2018 - Caffeine Use Caffeine Use: Reports: Coffee, Tea - Living Situation & Occupation Living situation: Reports: , with Spouse Occupation: Unemployed H&P Review of Systems - Review of Systems: Review Of Systems: Comprehensive ROS is negative, except as noted in HPI. Exam - Exam Exam: See Below - Vital Signs Vital Signs: Last Vital Signs Temp 98.2 F 09/12/19 17:15 Pulse 84 09/12/19 17:20 Resp 22 H 09/12/19 12:13 BP 150/90 H 09/12/19 17:20 Pulse Ox 92 L 09/12/19 17:20 Weight: 220 lb - Exam Quality Assessment: Supplemental Oxygen General: Alert, Oriented, 4 HEENT: Conjunctiva Clear, Hearing Intact, Mucosa Moist & [place] Neck: Supple, Trachea Midline, 2 Lungs: Wheezing (Throughout both lung perez). No: Normal Respiratory Effort ( Mildly increased respiratory with no use of accessory muscles and slight increased respiratory rate of 22.) Cardiovascular: Regular Rate, Regular Rhythm GI/Abdominal Exam: Normal Bowel Sounds, Soft, Non-Tender, No Organomegaly, No Distention Extremities: Normal Inspection, Normal Range of Motion, Non-Tender, No Pedal Edema, Normal Capillary Refill Skin: Warm, Dry, Intact Neuro Extensive - Mental Status: Alert, Oriented x3, Normal Mood/Affect, Normal Cognition, Memory Intact Psychiatric: Alert, Normal Affect, Normal Mood - Patient Data Lab Results Last 24 hrs: Laboratory Results - last 24 hr 09/12/19 09/12/19 09/12/19 Range/Units 13:05 13:05 13:05 WBC 11.51 H (3.98-10.04) K/mm3 RBC 5.07 (3.98-5.22) M/mm3 Hgb 15.6 (11.2-15.7) gm/dl Hct 44.0 (34.1-44.9) % MCV 86.8 D (79.4-94.8) fl MCH 30.8 (25.6-32.2) pg MCHC 35.5 (32.2-35.5) g/dl RDW Std Deviation 42.8 (36.4-46.3) fL Plt Count 335 (182-369) K/mm3 MPV 11.0 (9.4-12.3) fl Neutrophils % (Manual) 76 H (40-60) % Band Neutrophils % 0 (0-10) % Lymphocytes % (Manual) 12 L (20-40) % Atypical Lymphs % 0 % Monocytes % (Manual) 4 (2-10) % Eosinophils % (Manual) 8 H (0.7-5.8) % Basophils % (Manual) 0 L (0.1-1.2) Platelet Estimate Adequate RBC Morph Comment Normal ESR 18 (0-20) mm/hr Sodium 140 (136-145) mEq/L Potassium 3.1 L (3.5-5.1) mEq/L Chloride 102 (98-107) mEq/L Carbon Dioxide 26 (21-32) mEq/L Anion Gap 15.1 H (5-15) BUN 7 (7-18) mg/dL Creatinine 0.8 (0.55-1.02) mg/dL Est Cr Clr Drug Dosing 81.08 mL/min Estimated GFR (MDRD) > 60 (>60) mL/min BUN/Creatinine Ratio 8.8 L (14-18) Glucose 110 H (74-106) mg/dL Calcium 9.8 (8.5-10.1) mg/dL Magnesium (1.8-2.4) mg/dl Total Bilirubin 0.7 (0.2-1.0) mg/dL AST 60 H (15-37) U/L ALT 83 H (14-59) U/L Alkaline Phosphatase 83 (46-116) U/L Troponin I 0.027 (0.00-0.056) ng/mL C-Reactive Protein (<1.0) mg/dL NT-Pro-B Natriuret Pep (0-125) pg/mL Total Protein 7.6 (6.4-8.2) g/dl Albumin 3.9 (3.4-5.0) g/dl Globulin 3.7 gm/dL Albumin/Globulin Ratio 1.1 (1-2) TSH 3rd Generation (0.358-3.74) uIU/mL SARS Virus RNA (PCR) (NEGATIVE) 09/12/19 09/12/19 09/12/19 Range/Units 13:05 13:05 15:07 WBC (3.98-10.04) K/mm3 RBC (3.98-5.22) M/mm3 Hgb (11.2-15.7) gm/dl Hct (34.1-44.9) % MCV (79.4-94.8) fl MCH (25.6-32.2) pg MCHC (32.2-35.5) g/dl RDW Std Deviation (36.4-46.3) fL Plt Count (182-369) K/mm3 MPV (9.4-12.3) fl Neutrophils % (Manual) (40-60) % Band Neutrophils % (0-10) % Lymphocytes % (Manual) (20-40) % Atypical Lymphs % % Monocytes % (Manual) (2-10) % Eosinophils % (Manual) (0.7-5.8) % Basophils % (Manual) (0.1-1.2) Platelet Estimate RBC Morph Comment ESR (0-20) mm/hr Sodium (136-145) mEq/L Potassium (3.5-5.1) mEq/L Chloride (98-107) mEq/L Carbon Dioxide (21-32) mEq/L Anion Gap (5-15) BUN (7-18) mg/dL Creatinine (0.55-1.02) mg/dL Est Cr Clr Drug Dosing mL/min Estimated GFR (MDRD) (>60) mL/min BUN/Creatinine Ratio (14-18) Glucose (74-106) mg/dL Calcium (8.5-10.1) mg/dL Magnesium 2.0 (1.8-2.4) mg/dl Total Bilirubin (0.2-1.0) mg/dL AST (15-37) U/L ALT (14-59) U/L Alkaline Phosphatase (46-116) U/L Troponin I (0.00-0.056) ng/mL C-Reactive Protein 0.4 (<1.0) mg/dL NT-Pro-B Natriuret Pep 98 (0-125) pg/mL Total Protein (6.4-8.2) g/dl Albumin (3.4-5.0) g/dl Globulin gm/dL Albumin/Globulin Ratio (1-2) TSH 3rd Generation 0.965 (0.358-3.74) uIU/mL SARS Virus RNA (PCR) Negative (NEGATIVE) Result Diagrams: 09/12/19 13:05 09/12/19 13:05 Sepsis Event Note - Evaluation Sepsis Screening Result: No Definite Risk - Focused Exam Vital Signs: Vital Signs Temp Temp Pulse Pulse Resp BP BP 09/12/19 17:20 84 150/90 H 09/12/19 17:15 98.2 F 84 139/100 H 09/12/19 12:46 09/12/19 12:38 09/12/19 12:13 96.4 F L 86 22 H 154/123 H Pulse Ox Pulse Ox 09/12/19 17:20 92 L 09/12/19 17:15 89 L 09/12/19 12:46 93 L 09/12/19 12:38 93 L 09/12/19 12:13 92 L Date Exam was Performed: 09/12/19 Time Exam was Performed: 20:10 Problem List Initiated/Reviewed/Updated: Yes Orders Last 24hrs: Active Orders 24 hr Category Date Time Status Admission Status [Patient Status] [ADT] Routine ADT 09/12/19 14:40 Active EKG Documentation Completion [RC] STAT Care 09/12/19 12:38 Active Oxygen Therapy [RC] ASDIRECTED Care 09/12/19 12:44 Active Oxygen Therapy [RC] PRN Care 09/12/19 17:35 Ordered RT Aerosol Therapy [RC] ASDIRECTED Care 09/12/19 12:38 Active RT Aerosol Therapy [RC] ASDIRECTED Care 09/12/19 12:46 Active RT Aerosol Therapy [RC] ASDIRECTED Care 09/12/19 17:36 Inactive RT Chest Physiotherapy [RC] ASDIRECTED Care 09/12/19 17:41 Ordered RT Incentive Spirometry [RC] ASDIRECTED Care 09/12/19 17:41 Ordered Up ad Michelle [RC] ASDIRECTED Care 09/12/19 17:35 Ordered VTE/DVT Education [RC] PER UNIT ROUTINE Care 09/12/19 17:35 Ordered Vital Signs [RC] Q4H Care 09/12/19 17:35 Ordered Regular Diet [DIET] Diet 09/12/19 Dinner Active C-REACTIVE PROTEIN [CHEM] AM Lab 09/13/19 05:11 Ordered CBC WITH AUTO DIFF [HEME] AM Lab 09/13/19 05:11 Ordered COMPREHENSIVE METABOLIC PN,CMP [CHEM] AM Lab 09/13/19 05:11 Ordered MAGNESIUM [CHEM] AM Lab 09/13/19 05:11 Ordered Acetaminophen [Tylenol] Med 09/12/19 17:35 Ordered 650 mg PO Q4H PRN Acetylcysteine [Mucomyst 20%] Med 09/12/19 21:00 Ordered 800 mg NEB QIDRT Albuterol [Proventil Neb Soln] Med 09/12/19 17:35 Ordered 2.5 mg NEB Q2H PRN Albuterol/Ipratropium [DuoNeb 3.0-0.5 MG/3 ML] Med 09/12/19 21:00 Ordered 3 ml NEB Q6HRRT Enoxaparin [Lovenox] Med 09/13/19 09:00 Ordered 40 mg SUBCUT DAILY Potassium Chloride [Klor-Con M20] Med 09/12/19 21:00 Once 40 meq PO ONETIME ONE cefTRIAXone [Rocephin] 1 gm Med 09/12/19 17:45 Ordered Sodium Chloride 0.9% [Normal Saline] 100 ml IV Q24H guaiFENesin [Mucinex] Med 09/12/19 21:00 Ordered 600 mg PO TID methylPREDNISolone Sod Succ [Solu-MEDROL] Med 09/12/19 17:45 Ordered 40 mg IVPUSH Q6H Resuscitation Status Routine Resus Stat 09/12/19 17:35 Ordered Medication Orders Acetaminophen (Tylenol) 650 mg PO Q4H PRN PRN Reason: Pain (Mild 1-3)/fever Acetylcysteine (Mucomyst 20%) 800 mg NEB QIDRT LEIF Albuterol (Proventil Neb Soln) 2.5 mg NEB Q2H PRN PRN Reason: Shortness Of Breath/wheezing Albuterol/Ipratropium (Duoneb 3.0-0.5 Mg/3 Ml) 3 ml NEB Q6HRRT LEIF Enoxaparin Sodium (Lovenox) 40 mg SUBCUT DAILY LEIF Guaifenesin (Mucinex) 600 mg PO TID LEIF Ceftriaxone Sodium 1 gm/ (Sodium Chloride) 100 mls @ 200 mls/hr IV Q24H LEIF Methylprednisolone Sodium Succinate (Solu-Medrol) 40 mg IVPUSH Q6H LEIF Potassium Chloride (Klor-Con M20) 40 meq PO ONETIME ONE Stop: 09/12/19 21:01 Assessment/Plan Comment:: Acute exacerbation of COPD requiring oxygen * Former smoker stopped 14 months ago * Normal chest x-ray * Requiring 2 L FiO2 to keep SPO2 greater than 90% * Started on Solu-Medrol in route Plan * Admit to the floor * DuoNeb every 6 hours * Albuterol nebs every 2 hours as needed * Mucinex and Mucomyst for mucolytic * Solu-Medrol 40 mg every 6 hours * Incentive spirometry and Acapella * Rocephin 1 g IV daily Hypertension * On metoprolol, lisinopril, hydrochlorothiazide, and amlodipine as an outpatient Plan * Restart home meds * Monitor vital signs every 4 hours Hypothyroidism * Levothyroxine 150 mcg p.o. daily Plan * Get TSH in the morning * Continue home meds VTE prophylaxis with Lovenox CODE STATUS: Full code Disposition admit to floor. Length of stay likely 2 to 3 days. Plan to get her off oxygen therapy prior to discharge. - Mortality Measure Prognosis:: Good
[2019-09-12] MEDS: cefTRIAXone 1 GM in Sodium Chloride 0.9% 100 ML IV SCH (18:27)
[2019-09-12] MEDS: methylPREDNISolone Sodium Succinate 40 MG/1 ML SDV IVPUSH SCH (18:27)
[2019-09-12] MEDS: Simvastatin 10 MG Tab PO SCH ×2 (20:45→20:48)
[2019-09-12] MEDS: guaiFENesin 600 MG Tab.ER PO SCH (20:45)
[2019-09-12] MEDS: Albuterol/Ipratropium 3.0-0.5 MG/3 ML Neb Soln NEB SCH (20:54)
[2019-09-12] MEDS: Acetylcysteine 20% 200 MG/ML 4 ML Nebulizer Soln SDV NEB SCH (20:54)
[2019-09-12] MEDS ORDERED: Potassium Chloride 20 MEQ Tab.ER PO ONE (21:00)
[2019-09-13] MEDS: methylPREDNISolone Sodium Succinate 40 MG/1 ML SDV IVPUSH SCH ×4 (00:20→18:37)
[2019-09-13] MEDS: Albuterol/Ipratropium 3.0-0.5 MG/3 ML Neb Soln NEB SCH ×4 (02:46→20:35)
[2019-09-13] MEDS: Levothyroxine 50 MCG Tab PO SCH (06:30)
[2019-09-13] MEDS: Acetylcysteine 20% 200 MG/ML 4 ML Nebulizer Soln SDV NEB SCH (06:34)
[2019-09-13] MEDS: Albuterol 0.083% 2.5 MG/3 ML Neb Soln NEB PRN ×2 (06:34→12:09)
[2019-09-13] MEDS ORDERED: Potassium Chloride 20 MEQ Tab.ER PO ONE (09:00)
[2019-09-13] MEDS: Lisinopril 20 MG Tab PO SCH (09:33)
[2019-09-13] MEDS: Metoprolol Succinate 50 MG Tab.ER PO SCH (09:36)
[2019-09-13] MEDS: guaiFENesin 600 MG Tab.ER PO SCH ×3 (09:37→20:51)
[2019-09-13] MEDS: Hydrochlorothiazide 25 MG Tab PO SCH (09:38)
[2019-09-13] MEDS: Aspirin 81 MG Tab.Chew PO SCH (09:38)
[2019-09-13] MEDS: amLODIPine 5 MG Tab PO SCH (09:38)
[2019-09-13] MEDS: Enoxaparin 40 MG/0.4 ML Syringe SUBCUT SCH (09:38)
--- NOTE | 2019-09-13 10:00 | PCM.PN ---
- General Info Date of Service: 09/13/19 Admission Dx/Problem (Free Text): Admission Diagnosis/Problem Admission Diagnosis/Problem COPD, Mild chronic obstructive pulmonary disease Subjective Update: Patient had an episode of choking and bronchospasm associated with Mucomyst in the middle the night. Fortunately, she did have a large amount of sputum and mucus that was removed during the coughing fit. Patient states that she is feeling somewhat better but continues to be short of breath. Functional Status: Reports: Pain Controlled - Review of Systems General: Reports: No Symptoms HEENT: Reports: No Symptoms Pulmonary: Reports: Shortness of Breath, Cough, Wheezing Cardiovascular: Reports: No Symptoms Gastrointestinal: Reports: No Symptoms Musculoskeletal: Reports: No Symptoms - Patient Data Vitals - Most Recent: Last Vital Signs Temp 97.7 F 09/13/19 09:24 Pulse 96 09/13/19 09:36 Resp 16 09/13/19 09:24 BP 125/83 09/13/19 09:38 Pulse Ox 92 L 09/13/19 09:24 Weight - Most Recent: 240 lb 9.6 oz I&O - Last 24 Hours: Intake & Output 09/12/19 09/13/19 09/13/19 22:59 06:59 14:59 Intake Total 60 1200 Output Total 2100 Balance 60 -900 Lab Results Last 24 Hours: Laboratory Results - last 24 hr 09/12/19 09/12/19 09/12/19 Range/Units 13:05 13:05 13:05 WBC 11.51 H (3.98-10.04) K/mm3 RBC 5.07 (3.98-5.22) M/mm3 Hgb 15.6 (11.2-15.7) gm/dl Hct 44.0 (34.1-44.9) % MCV 86.8 D (79.4-94.8) fl MCH 30.8 (25.6-32.2) pg MCHC 35.5 (32.2-35.5) g/dl RDW Std Deviation 42.8 (36.4-46.3) fL Plt Count 335 (182-369) K/mm3 MPV 11.0 (9.4-12.3) fl Neut % (Auto) (34.0-71.1) % Lymph % (Auto) (19.3-51.7) % [place] % (Auto) (4.7-12.5) % Eos % (Auto) (0.7-5.8) Baso % (Auto) (0.1-1.2) % Neut # (Auto) (1.56-6.13) K/mm3 Lymph # (Auto) (1.18-3.74) K/mm3 [place] # (Auto) (0.24-0.36) K/mm3 Eos # (Auto) (0.04-0.36) K/mm3 Baso # (Auto) (0.01-0.08) K/mm3 Neutrophils % (Manual) 76 H (40-60) % Band Neutrophils % 0 (0-10) % Lymphocytes % (Manual) 12 L (20-40) % Atypical Lymphs % 0 % Monocytes % (Manual) 4 (2-10) % Eosinophils % (Manual) 8 H (0.7-5.8) % Basophils % (Manual) 0 L (0.1-1.2) Manual Slide Review Platelet Estimate Adequate RBC Morph Comment Normal ESR 18 (0-20) mm/hr Sodium 140 (136-145) mEq/L Potassium 3.1 L (3.5-5.1) mEq/L Chloride 102 (98-107) mEq/L Carbon Dioxide 26 (21-32) mEq/L Anion Gap 15.1 H (5-15) BUN 7 (7-18) mg/dL Creatinine 0.8 (0.55-1.02) mg/dL Est Cr Clr Drug Dosing 81.08 mL/min Estimated GFR (MDRD) > 60 (>60) mL/min BUN/Creatinine Ratio 8.8 L (14-18) Glucose 110 H (74-106) mg/dL Calcium 9.8 (8.5-10.1) mg/dL Magnesium (1.8-2.4) mg/dl Total Bilirubin 0.7 (0.2-1.0) mg/dL AST 60 H (15-37) U/L ALT 83 H (14-59) U/L Alkaline Phosphatase 83 (46-116) U/L Troponin I 0.027 (0.00-0.056) ng/mL C-Reactive Protein (<1.0) mg/dL NT-Pro-B Natriuret Pep (0-125) pg/mL Total Protein 7.6 (6.4-8.2) g/dl Albumin 3.9 (3.4-5.0) g/dl Globulin 3.7 gm/dL Albumin/Globulin Ratio 1.1 (1-2) TSH 3rd Generation (0.358-3.74) uIU/mL SARS Virus RNA (PCR) (NEGATIVE) 09/12/19 09/12/19 09/12/19 Range/Units 13:05 13:05 15:07 WBC (3.98-10.04) K/mm3 RBC (3.98-5.22) M/mm3 Hgb (11.2-15.7) gm/dl Hct (34.1-44.9) % MCV (79.4-94.8) fl MCH (25.6-32.2) pg MCHC (32.2-35.5) g/dl RDW Std Deviation (36.4-46.3) fL Plt Count (182-369) K/mm3 MPV (9.4-12.3) fl Neut % (Auto) (34.0-71.1) % Lymph % (Auto) (19.3-51.7) % [place] % (Auto) (4.7-12.5) % Eos % (Auto) (0.7-5.8) Baso % (Auto) (0.1-1.2) % Neut # (Auto) (1.56-6.13) K/mm3 Lymph # (Auto) (1.18-3.74) K/mm3 [place] # (Auto) (0.24-0.36) K/mm3 Eos # (Auto) (0.04-0.36) K/mm3 Baso # (Auto) (0.01-0.08) K/mm3 Neutrophils % (Manual) (40-60) % Band Neutrophils % (0-10) % Lymphocytes % (Manual) (20-40) % Atypical Lymphs % % Monocytes % (Manual) (2-10) % Eosinophils % (Manual) (0.7-5.8) % Basophils % (Manual) (0.1-1.2) Manual Slide Review Platelet Estimate RBC Morph Comment ESR (0-20) mm/hr Sodium (136-145) mEq/L Potassium (3.5-5.1) mEq/L Chloride (98-107) mEq/L Carbon Dioxide (21-32) mEq/L Anion Gap (5-15) BUN (7-18) mg/dL Creatinine (0.55-1.02) mg/dL Est Cr Clr Drug Dosing mL/min Estimated GFR (MDRD) (>60) mL/min BUN/Creatinine Ratio (14-18) Glucose (74-106) mg/dL Calcium (8.5-10.1) mg/dL Magnesium 2.0 (1.8-2.4) mg/dl Total Bilirubin (0.2-1.0) mg/dL AST (15-37) U/L ALT (14-59) U/L Alkaline Phosphatase (46-116) U/L Troponin I (0.00-0.056) ng/mL C-Reactive Protein 0.4 (<1.0) mg/dL NT-Pro-B Natriuret Pep 98 (0-125) pg/mL Total Protein (6.4-8.2) g/dl Albumin (3.4-5.0) g/dl Globulin gm/dL Albumin/Globulin Ratio (1-2) TSH 3rd Generation 0.965 (0.358-3.74) uIU/mL SARS Virus RNA (PCR) Negative (NEGATIVE) 09/13/19 09/13/19 Range/Units 05:45 05:45 WBC 11.69 H (3.98-10.04) K/mm3 RBC 5.09 (3.98-5.22) M/mm3 Hgb 15.6 (11.2-15.7) gm/dl Hct 44.5 (34.1-44.9) % MCV 87.4 (79.4-94.8) fl MCH 30.6 (25.6-32.2) pg MCHC 35.1 (32.2-35.5) g/dl RDW Std Deviation 43.5 (36.4-46.3) fL Plt Count 375 H (182-369) K/mm3 MPV 10.9 (9.4-12.3) fl Neut % (Auto) 88.8 H (34.0-71.1) % Lymph % (Auto) 9.8 L (19.3-51.7) % [place] % (Auto) 1.1 L (4.7-12.5) % Eos % (Auto) 0 L (0.7-5.8) Baso % (Auto) 0.1 (0.1-1.2) % Neut # (Auto) 10.39 H (1.56-6.13) K/mm3 Lymph # (Auto) 1.14 L (1.18-3.74) K/mm3 [place] # (Auto) 0.13 L (0.24-0.36) K/mm3 Eos # (Auto) 0.00 L (0.04-0.36) K/mm3 Baso # (Auto) 0.01 (0.01-0.08) K/mm3 Neutrophils % (Manual) (40-60) % Band Neutrophils % (0-10) % Lymphocytes % (Manual) (20-40) % Atypical Lymphs % % Monocytes % (Manual) (2-10) % Eosinophils % (Manual) (0.7-5.8) % Basophils % (Manual) (0.1-1.2) Manual Slide Review Abnormal smear Platelet Estimate RBC Morph Comment ESR (0-20) mm/hr Sodium 140 (136-145) mEq/L Potassium 3.2 L (3.5-5.1) mEq/L Chloride 102 (98-107) mEq/L Carbon Dioxide 26 (21-32) mEq/L Anion Gap 15.2 H (5-15) BUN 10 (7-18) mg/dL Creatinine 0.9 (0.55-1.02) mg/dL Est Cr Clr Drug Dosing 72.07 mL/min Estimated GFR (MDRD) > 60 (>60) mL/min BUN/Creatinine Ratio 11.1 L (14-18) Glucose 164 H (74-106) mg/dL Calcium 9.7 (8.5-10.1) mg/dL Magnesium 1.9 (1.8-2.4) mg/dl Total Bilirubin 0.5 (0.2-1.0) mg/dL AST 35 (15-37) U/L ALT 71 H (14-59) U/L Alkaline Phosphatase 77 (46-116) U/L Troponin I (0.00-0.056) ng/mL C-Reactive Protein 0.4 (<1.0) mg/dL NT-Pro-B Natriuret Pep (0-125) pg/mL Total Protein 7.7 (6.4-8.2) g/dl Albumin 3.7 (3.4-5.0) g/dl Globulin 4.0 gm/dL Albumin/Globulin Ratio 0.9 L (1-2) TSH 3rd Generation (0.358-3.74) uIU/mL SARS Virus RNA (PCR) (NEGATIVE) Med Orders - Current: Current Medications Acetaminophen (Tylenol) 650 mg PO Q4H PRN PRN Reason: Pain (Mild 1-3)/fever Albuterol (Proventil Neb Soln) 2.5 mg NEB Q2H PRN PRN Reason: Shortness Of Breath/wheezing Last Admin: 09/13/19 06:34 Dose: 2.5 mg Albuterol/Ipratropium (Duoneb 3.0-0.5 Mg/3 Ml) 3 ml NEB Q6HRRT [facility] Last Admin: 09/13/19 08:38 Dose: 3 ml Amlodipine Besylate (Norvasc) 5 mg PO DAILY [facility] Last Admin: 09/13/19 09:38 Dose: 5 mg Aspirin (Aspirin) 81 mg PO DAILY [facility] Last Admin: 09/13/19 09:38 Dose: 81 mg Enoxaparin Sodium (Lovenox) 40 mg SUBCUT DAILY [facility] Last Admin: 09/13/19 09:38 Dose: 40 mg Guaifenesin (Mucinex) 600 mg PO TID [facility] Last Admin: 09/13/19 09:37 Dose: 600 mg Hydrochlorothiazide (Hydrochlorothiazide) 25 mg PO DAILY [facility] Last Admin: 09/13/19 09:38 Dose: 25 mg Ceftriaxone Sodium 1 gm/ (Sodium Chloride) 100 mls @ 200 mls/hr IV Q24H [facility] Last Admin: 09/12/19 18:27 Dose: 200 mls/hr Levothyroxine Sodium (Synthroid) 150 mcg PO ACBREAKFAST [facility] Last Admin: 09/13/19 06:30 Dose: 150 mcg Lisinopril (Prinivil) 25 mg PO DAILY [facility] Last Admin: 09/13/19 09:33 Dose: 25 mg Methylprednisolone Sodium Succinate (Solu-Medrol) 40 mg IVPUSH Q6H [facility] Last Admin: 09/13/19 06:30 Dose: 40 mg Metoprolol Succinate (Toprol Xl) 200 mg PO DAILY [facility] Last Admin: 09/13/19 09:36 Dose: 200 mg Simvastatin (Zocor) 10 mg PO BEDTIME [facility] Last Admin: 09/12/19 20:48 Dose: Not Given Discontinued Medications Acetylcysteine (Mucomyst 20%) 800 mg NEB QIDRT [facility] Last Admin: 09/13/19 06:34 Dose: Not Given Albuterol (Proventil) 7.5 mg NEB ONETIME ONE Stop: 09/12/19 12:47 Last Admin: 09/12/19 13:09 Dose: 7.5 mg Albuterol/Ipratropium (Duoneb 3.0-0.5 Mg/3 Ml) 3 ml NEB ONETIME ONE Stop: 09/12/19 12:37 Last Admin: 09/12/19 12:49 Dose: 3 ml Potassium Chloride 10 meq/ (Premix) 100 mls @ 100 mls/hr IV Q1H [facility] Stop: 09/12/19 17:29 Last Admin: 09/12/19 19:48 Dose: Not Given Sodium Chloride (Normal Saline) 1,000 mls @ 100 mls/hr IV ASDIRECTED [facility] Last Admin: 09/12/19 16:44 Dose: 100 mls/hr Potassium Chloride (Klor-Con M20) 40 meq PO ONETIME ONE Stop: 09/12/19 21:01 Last Admin: 09/12/19 20:45 Dose: 40 meq Potassium Chloride (Klor-Con M20) 40 meq PO ONETIME ONE Stop: 09/13/19 09:01 Last Admin: 09/13/19 09:37 Dose: 40 meq - Exam Quality Assessment: Supplemental Oxygen General: Alert, Oriented HEENT: Pupils Equal, Mucous Membr. Moist/[place] Neck: Supple Lungs: Wheezing (Throughout both lung perez). No: Normal Respiratory Effort ( Increased respiratory rate and effort with mild use of accessory muscles) Cardiovascular: Regular Rate, Regular Rhythm, Murmurs GI/Abdominal Exam: Normal Bowel Sounds, Soft, Non-Tender, No Organomegaly, No Distention, No Abnormal Bruit, No Mass, Pelvis Stable Extremities: Normal Inspection, Normal Range of Motion, Non-Tender, No Pedal Edema, Normal Capillary Refill Skin: Warm, Dry, Intact Neurological: No New Focal Deficit Psy/Mental Status: Alert, Normal Affect, Normal Mood Sepsis Event Note - Evaluation Sepsis Screening Result: No Definite Risk - Focused Exam Vital Signs: Vital Signs Temp Pulse Resp BP Pulse Ox Pulse Ox 09/13/19 09:38 125/83 09/13/19 09:36 96 125/83 09/13/19 09:33 125/83 09/13/19 09:24 97.7 F 96 16 125/83 92 L 09/13/19 08:40 93 L 09/13/19 06:29 97.7 F 67 16 127/80 93 L 09/13/19 02:50 93 L 09/13/19 00:19 98.2 F 73 16 126/84 93 L Date Exam was Performed: 09/13/19 Time Exam was Performed: 14:55 - Problem List Review Problem List Initiated/Reviewed/Updated: Yes - My Orders Last 24 Hours: My Active Orders 09/12/19 17:35 Up ad Michelle [RC] BID VTE/DVT Education [RC] DAILY Vital Signs [RC] Q4HR Acetaminophen [Tylenol] 650 mg PO Q4H PRN Albuterol [Proventil Neb Soln] 2.5 mg NEB Q2H PRN Resuscitation Status Routine 09/12/19 17:36 RT Aerosol Therapy [RC] ASDIRECTED 09/12/19 17:41 RT Chest Physiotherapy [RC] ASDIRECTED RT Incentive Spirometry [RC] ASDIRECTED 09/12/19 19:00 cefTRIAXone [Rocephin] 1 gm Sodium Chloride 0.9% [Normal Saline] 100 ml IV Q24H methylPREDNISolone Sod Succ [Solu-MEDROL] 40 mg IVPUSH Q6H 09/12/19 21:00 Albuterol/Ipratropium [DuoNeb 3.0-0.5 MG/3 ML] 3 ml NEB Q6HRRT Simvastatin [Zocor] 10 mg PO BEDTIME guaiFENesin [Mucinex] 600 mg PO TID 09/12/19 Dinner Regular Diet [DIET] 09/13/19 06:15 Levothyroxine [Synthroid] 150 mcg PO ACBREAKFAST 09/13/19 09:00 Aspirin 81 mg PO DAILY Enoxaparin [Lovenox] 40 mg SUBCUT DAILY Metoprolol Succinate [Toprol XL] 200 mg PO DAILY amLODIPine [Norvasc] 5 mg PO DAILY hydroCHLOROthiazide 25 mg PO DAILY lisinopriL [Prinivil] 25 mg PO DAILY - Plan Plan:: Acute exacerbation of COPD requiring oxygen * Former smoker stopped 14 months ago * Normal chest x-ray * Requiring 2 L FiO2 to keep SPO2 greater than 90% * Started on Solu-Medrol in route * Improving overnight Plan * Admit to the floor * DuoNeb every 6 hours * Albuterol nebs every 2 hours as needed * Mucinex 600 mg 3 times daily * Solu-Medrol 40 mg every 6 hours * Incentive spirometry and Acapella * Rocephin 1 g IV daily * Stop Mucomyst Hypertension * On metoprolol, lisinopril, hydrochlorothiazide, and amlodipine as an outpatient Plan * Restart home meds * Monitor vital signs every 4 hours Hypothyroidism * Levothyroxine 150 mcg p.o. daily * TSH 0.96 Plan * Continue home meds VTE prophylaxis with Lovenox CODE STATUS: Full code Disposition admit to floor. Length of stay likely 2 to 3 days. Plan to wean her off oxygen therapy prior to discharge.
[2019-09-13] MEDS: cefTRIAXone 1 GM in Sodium Chloride 0.9% 100 ML IV SCH (18:37)
[2019-09-13] MEDS: Latanoprost 0.005% Ophth Soln 2.5 ML Bottle EYEBOTH SCH (20:52)
[2019-09-13] MEDS: Simvastatin 10 MG Tab PO SCH (20:52)
[2019-09-14] MEDS: methylPREDNISolone Sodium Succinate 40 MG/1 ML SDV IVPUSH SCH ×4 (01:54→20:31)
[2019-09-14] MEDS: Albuterol/Ipratropium 3.0-0.5 MG/3 ML Neb Soln NEB SCH ×4 (03:13→20:00)
[2019-09-14] MEDS: Levothyroxine 50 MCG Tab PO SCH (05:58)
--- NOTE | 2019-09-14 07:47 | PCM.PN ---
- General Info Date of Service: 09/14/19 Admission Dx/Problem (Free Text): Admission Diagnosis/Problem Admission Diagnosis/Problem COPD, Mild chronic obstructive pulmonary disease Subjective Update: Jyoti continues to improve, but she still requires 2 L of O2 via nasal cannula. Functional Status: Reports: Pain Controlled - Review of Systems General: Reports: No Symptoms HEENT: Reports: No Symptoms Pulmonary: Reports: Shortness of Breath, Cough Cardiovascular: Reports: No Symptoms Gastrointestinal: Reports: No Symptoms Musculoskeletal: Reports: No Symptoms - Patient Data Vitals - Most Recent: Last Vital Signs Temp 97.7 F 09/13/19 19:25 Pulse 75 09/14/19 05:58 Resp 20 09/14/19 05:58 BP 129/94 H 09/14/19 05:58 Pulse Ox 93 L 09/14/19 05:58 Weight - Most Recent: 240 lb 1.6 oz I&O - Last 24 Hours: Intake & Output 09/13/19 09/14/19 09/14/19 22:59 06:59 14:59 Intake Total 2580 1300 Output Total 1900 2000 Balance 680 -700 Lab Results Last 24 Hours: Laboratory Results - last 24 hr 09/14/19 09/14/19 Range/Units 05:35 05:35 WBC 14.30 H (3.98-10.04) K/mm3 RBC 4.82 (3.98-5.22) M/mm3 Hgb 14.7 (11.2-15.7) gm/dl Hct 43.2 (34.1-44.9) % MCV 89.6 (79.4-94.8) fl MCH 30.5 (25.6-32.2) pg MCHC 34.0 (32.2-35.5) g/dl RDW Std Deviation 46.1 (36.4-46.3) fL Plt Count 363 (182-369) K/mm3 MPV 11.4 (9.4-12.3) fl Neut % (Auto) 91.2 H (34.0-71.1) % Lymph % (Auto) 5.9 L (19.3-51.7) % Real % (Auto) 2.8 L (4.7-12.5) % Eos % (Auto) 0 L (0.7-5.8) Baso % (Auto) 0.0 L (0.1-1.2) % Neut # (Auto) 13.03 H (1.56-6.13) K/mm3 Lymph # (Auto) 0.85 L (1.18-3.74) K/mm3 Real # (Auto) 0.40 H (0.24-0.36) K/mm3 Eos # (Auto) 0.00 L (0.04-0.36) K/mm3 Baso # (Auto) 0.00 L (0.01-0.08) K/mm3 Manual Slide Review Abnormal smear Sodium 141 (136-145) mEq/L Potassium 3.6 (3.5-5.1) mEq/L Chloride 105 (98-107) mEq/L Carbon Dioxide 25 (21-32) mEq/L Anion Gap 14.6 (5-15) BUN 17 (7-18) mg/dL Creatinine 0.9 (0.55-1.02) mg/dL Est Cr Clr Drug Dosing 72.07 mL/min Estimated GFR (MDRD) > 60 (>60) mL/min BUN/Creatinine Ratio 18.9 H (14-18) Glucose 143 H (74-106) mg/dL Calcium 9.3 (8.5-10.1) mg/dL Magnesium 2.2 (1.8-2.4) mg/dl Med Orders - Current: Current Medications Acetaminophen (Tylenol) 650 mg PO Q4H PRN PRN Reason: Pain (Mild 1-3)/fever Albuterol (Proventil Neb Soln) 2.5 mg NEB Q2H PRN PRN Reason: Shortness Of Breath/wheezing Last Admin: 09/13/19 12:09 Dose: 2.5 mg Albuterol/Ipratropium (Duoneb 3.0-0.5 Mg/3 Ml) 3 ml NEB Q6HRRT [facility] Last Admin: 09/14/19 03:13 Dose: 3 ml Amlodipine Besylate (Norvasc) 5 mg PO DAILY [facility] Last Admin: 09/13/19 09:38 Dose: 5 mg Aspirin (Aspirin) 81 mg PO DAILY [facility] Last Admin: 09/13/19 09:38 Dose: 81 mg Enoxaparin Sodium (Lovenox) 40 mg SUBCUT DAILY [facility] Last Admin: 09/13/19 09:38 Dose: 40 mg Guaifenesin (Mucinex) 600 mg PO TID [facility] Last Admin: 09/13/19 20:51 Dose: 600 mg Hydrochlorothiazide (Hydrochlorothiazide) 25 mg PO DAILY [facility] Last Admin: 09/13/19 09:38 Dose: 25 mg Ceftriaxone Sodium 1 gm/ (Sodium Chloride) 100 mls @ 200 mls/hr IV Q24H [facility] Last Admin: 09/13/19 18:37 Dose: 200 mls/hr Latanoprost (Xalatan 0.005% Oph Soln) 0 ml EYEBOTH BEDTIME [facility] Last Admin: 09/13/19 20:52 Dose: 2.5 ml Levothyroxine Sodium (Synthroid) 150 mcg PO ACBREAKFAST [facility] Last Admin: 09/14/19 05:58 Dose: 150 mcg Lisinopril (Prinivil) 25 mg PO DAILY [facility] Last Admin: 09/13/19 09:33 Dose: 25 mg Methylprednisolone Sodium Succinate (Solu-Medrol) 40 mg IVPUSH Q6H [facility] Last Admin: 09/14/19 06:01 Dose: 40 mg Metoprolol Succinate (Toprol Xl) 200 mg PO DAILY [facility] Last Admin: 09/13/19 09:36 Dose: 200 mg Simvastatin (Zocor) 10 mg PO BEDTIME [facility] Last Admin: 09/13/19 20:52 Dose: 10 mg Timolol Maleate (Timoptic 0.5% Oph Soln) 0 ml EYEBOTH DAILY [facility] Discontinued Medications Acetylcysteine (Mucomyst 20%) 800 mg NEB QIDRT [facility] Last Admin: 09/13/19 06:34 Dose: Not Given Albuterol (Proventil) 7.5 mg NEB ONETIME ONE Stop: 09/12/19 12:47 Last Admin: 09/12/19 13:09 Dose: 7.5 mg Albuterol/Ipratropium (Duoneb 3.0-0.5 Mg/3 Ml) 3 ml NEB ONETIME ONE Stop: 09/12/19 12:37 Last Admin: 09/12/19 12:49 Dose: 3 ml Potassium Chloride 10 meq/ (Premix) 100 mls @ 100 mls/hr IV Q1H [facility] Stop: 09/12/19 17:29 Last Admin: 09/12/19 19:48 Dose: Not Given Sodium Chloride (Normal Saline) 1,000 mls @ 100 mls/hr IV ASDIRECTED [facility] Last Admin: 09/12/19 16:44 Dose: 100 mls/hr Potassium Chloride (Klor-Con M20) 40 meq PO ONETIME ONE Stop: 09/12/19 21:01 Last Admin: 09/12/19 20:45 Dose: 40 meq Potassium Chloride (Klor-Con M20) 40 meq PO ONETIME ONE Stop: 09/13/19 09:01 Last Admin: 09/13/19 09:37 Dose: 40 meq - Exam Quality Assessment: Supplemental Oxygen General: Alert, Oriented HEENT: Pupils Equal, Mucous Membr. Moist/[place] Neck: Supple Lungs: Decreased Breath Sounds, Wheezing (Throughout both lung perez). No: Normal Respiratory Effort (Increased respiratory rate with mildly increased respiratory effort) Cardiovascular: Regular Rate, Regular Rhythm GI/Abdominal Exam: Normal Bowel Sounds, Soft, Non-Tender, No Organomegaly, No Distention Back Exam: Normal Inspection Extremities: Normal Inspection, Normal Range of Motion, Non-Tender, No Pedal Edema, Normal Capillary Refill Skin: Warm, Dry, Intact Psy/Mental Status: Alert, Normal Affect, Normal Mood Sepsis Event Note - Evaluation Sepsis Screening Result: No Definite Risk - Focused Exam Vital Signs: Vital Signs Pulse Resp BP Pulse Ox Pulse Ox 09/14/19 05:58 75 20 129/94 H 93 L 09/14/19 03:15 91 L 09/13/19 20:36 95 Date Exam was Performed: 09/14/19 Time Exam was Performed: 11:34 - Problem List Review Problem List Initiated/Reviewed/Updated: Yes - My Orders Last 24 Hours: My Active Orders 09/13/19 09:00 Aspirin 81 mg PO DAILY Enoxaparin [Lovenox] 40 mg SUBCUT DAILY Metoprolol Succinate [Toprol XL] 200 mg PO DAILY amLODIPine [Norvasc] 5 mg PO DAILY hydroCHLOROthiazide 25 mg PO DAILY lisinopriL [Prinivil] 25 mg PO DAILY 09/13/19 21:00 Latanoprost [Xalatan 0.005% Ophth Soln] 0 ml EYEBOTH BEDTIME 09/13/19 21:29 Admission Status [Patient Status] [ADT] Routine 09/14/19 09:00 timoloL maleate [Timoptic 0.5% Ophth Soln] 0 ml EYEBOTH DAILY - Plan Plan:: Acute exacerbation of COPD requiring oxygen * Former smoker stopped 14 months ago * Normal chest x-ray * Requiring 2 L FiO2 to keep SPO2 greater than 90% * Started on Solu-Medrol in route * Improving overnight * Mild increase in white count today likely secondary to steroid effect Plan * Admit to the floor * DuoNeb every 6 hours * Albuterol nebs every 2 hours as needed * Mucinex 600 mg 3 times daily * Solu-Medrol 40 mg every 6 hours * Incentive spirometry and Acapella * Rocephin 1 g IV daily * Stop Mucomyst secondary to bronchospasm Hypertension * On metoprolol, lisinopril, hydrochlorothiazide, and amlodipine as an outpatient * Blood pressure 129/94 Plan * Restart home meds * Monitor vital signs every 4 hours Hypothyroidism * Levothyroxine 150 mcg p.o. daily * TSH 0.96 Plan * Continue home meds VTE prophylaxis with Lovenox CODE STATUS: Full code Disposition admit to floor. Length of stay likely 2 to 3 days. Plan to wean her off oxygen therapy prior to discharge.
[2019-09-14] MEDS: Timolol Maleate 0.5% Ophth Soln 5 ML Bottle EYEBOTH SCH (08:16)
[2019-09-14] MEDS: Enoxaparin 40 MG/0.4 ML Syringe SUBCUT SCH (08:16)
[2019-09-14] MEDS: amLODIPine 5 MG Tab PO SCH (08:17)
[2019-09-14] MEDS: Lisinopril 20 MG Tab PO SCH (08:17)
[2019-09-14] MEDS: Hydrochlorothiazide 25 MG Tab PO SCH (08:19)
[2019-09-14] MEDS: Aspirin 81 MG Tab.Chew PO SCH (08:19)
[2019-09-14] MEDS: guaiFENesin 600 MG Tab.ER PO SCH ×3 (08:19→20:31)
[2019-09-14] MEDS: Metoprolol Succinate 50 MG Tab.ER PO SCH (08:19)
[2019-09-14] MEDS: Albuterol 0.083% 2.5 MG/3 ML Neb Soln NEB PRN (12:46)
[2019-09-14] MEDS: cefTRIAXone 1 GM in Sodium Chloride 0.9% 100 ML IV SCH (18:31)
[2019-09-14] MEDS: Latanoprost 0.005% Ophth Soln 2.5 ML Bottle EYEBOTH SCH (20:31)
[2019-09-14] MEDS: Simvastatin 10 MG Tab PO SCH (20:31)
[2019-09-15] MEDS: Albuterol/Ipratropium 3.0-0.5 MG/3 ML Neb Soln NEB SCH ×3 (02:02→14:21)
[2019-09-15] MEDS: Levothyroxine 50 MCG Tab PO SCH (05:53)
[2019-09-15] MEDS: methylPREDNISolone Sodium Succinate 40 MG/1 ML SDV IVPUSH SCH ×2 (05:54→13:41)
[2019-09-15] MEDS ORDERED: Lisinopril 20 MG Tab PO SCH (09:00)
[2019-09-15] MEDS: Hydrochlorothiazide 25 MG Tab PO SCH (09:08)
[2019-09-15] MEDS: guaiFENesin 600 MG Tab.ER PO SCH ×2 (09:10→15:13)
[2019-09-15] MEDS: amLODIPine 5 MG Tab PO SCH (09:10)
[2019-09-15] MEDS: Aspirin 81 MG Tab.Chew PO SCH (09:11)
[2019-09-15] MEDS: Metoprolol Succinate 50 MG Tab.ER PO SCH (09:11)
[2019-09-15] MEDS: Enoxaparin 40 MG/0.4 ML Syringe SUBCUT SCH (09:11)
[2019-09-15] MEDS: Timolol Maleate 0.5% Ophth Soln 5 ML Bottle EYEBOTH SCH (09:12)
--- NOTE | 2019-09-15 14:11 | PCM.DCSUM1 ---
Discharge Summary - Hospital Course HPI Initial Comments: 59-year-old female with history of COPD hospitalized 1 time last September presents to the emergency department via [facility] secondary to severe shortness of breath. Patient states that 7 days ago she started with sinus congestion that then descended to her chest 4 days ago. 2 days ago she developed a cough and wheeze and then it became more severe and thick. This morning she coughed and felt like she was unable to expectorate what she had in her throat and her oxygen saturations dropped. She states this morning her oxygen saturations were 94% and by 11:00 they were 74%. Her came home and she asked him to call EMS. Patient has not been exposed to anyone with COVID and her works in a greenery but wears a mask. She stopped smoking over a year ago. She denies any fever, chills, night sweats, orthopnea , or PND. She does state that he she has had worsening shortness of breath on exertion. When EMS arrived they gave her 1 treatment of albuterol and in route to the [facility]. She states that that did improve her symptoms. In the emergency department she was placed on 2 L of O2 via nasal cannula and she achieved oxygen saturation of 94%. Chest x-ray was performed which showed no acute changes. Labs white count 11.51 with 76% neutrophils and no bands, hemoglobin 15.6, platelets 335, sed rate 18, sodium 140, potassium 3.1, bicarb 26, anion gap 15.1, normal renal function. Troponin 0 0.027, C-reactive protein 0.4, BNP 98. Patient was very wheezy throughout all lung perez and having difficulty getting a full breath. She was given continuous albuterol nebulizers which did help but not well enough to be able to be sent home. Patient was then admitted for exacerbation of COPD. Diagnosis: Stroke: No - Discharge Data Discharge Date: 09/15/19 Discharge Disposition: Home, Self-Care 01 Condition: Good - Referral to Home Health Primary Care Physician: Leonel Caldwell PA-C - Discharge Diagnosis/Problem(s) (1) Acute exacerbation of chronic obstructive pulmonary disease (COPD) SNOMED Code(s): 960242762 ICD Code: J44.1 - CHRONIC OBSTRUCTIVE PULMONARY DISEASE W (ACUTE) EXACERBATION Status: Acute Priority: Medium Current Visit: No Onset Date : 10/08/18 Problem Details: should have ct scan as outpatient - Patient Summary/Data Hospital Course: Patient was admitted and started on Solu-Medrol, duo nebs, albuterol, Rocephin, incentive spirometry, and flutter valve. Oxygen was weaned as tolerated, but she continued to need at least 1 to 2 L. It was decided to discharge her on home O2 and have her follow-up with her primary care provider. Patient may benefit from Symbicort after she weans off of her prednisone. - Patient Instructions Diet: Usual Diet as Tolerated Activity: As Tolerated Driving: May Drive Today Showering/Bathing: May Shower Notify Provider of: Fever Other/Special Instructions: Follow-up with primary care provider this week. You will need home oxygen. - Discharge Plan *PRESCRIPTION DRUG MONITORING PROGRAM REVIEWED*: Not Applicable *COPY OF PRESCRIPTION DRUG MONITORING REPORT IN PATIENT MITZI: Not Applicable Prescriptions/Med Rec: Albuterol [Proventil Neb Soln] 2.5 mg NEB Q2H PRN #100 neb PRN Reason: Shortness Of Breath/wheezing Amoxicillin/Clavulanate K [Augmentin 875-125 MG] 1 tab PO BID #6 tablet predniSONE 40 mg PO WITHBREAKFAST #8 tab Home Medications: Home Meds Aspirin 81 mg PO DAILY 01/21/18 [History] Levothyroxine 150 mcg PO 0700 01/21/18 [History] Metoprolol Succinate 200 mg PO 1700 01/21/18 [History] Lisinopril/Hydrochlorothiazide [Lisinopril-Hctz 20-25 mg Tab] 25 mg PO DAILY [History] Lutein/Minerals/Vit A,C & E [Ocuvite] 1 tab PO DAILY 10/06/18 [History] amLODIPine Besylate [Amlodipine Besylate] 5 mg PO DAILY 10/06/18 [History] Albuterol [Proventil Neb Soln] 2.5 mg NEB Q4HRRT PRN #120 neb 10/09/18 [Rx] Umeclidinium [place] [Incruse Ellipta*] 1 puff INH DAILY 09/12/19 [History] atorvaSTATin [Lipitor] 10 mg PO BEDTIME 09/12/19 [History] Latanoprost 1 drop EYEBOTH BEDTIME 09/13/19 [History] Timolol Maleate 1 drop EYEBOTH DAILY 09/13/19 [History] Albuterol [Proventil Neb Soln] 2.5 mg NEB Q2H PRN #100 neb 09/15/19 [Rx] Amoxicillin/Clavulanate K [Augmentin 875-125 MG] 1 tab PO BID #6 tablet [Rx] guaiFENesin [Mucinex] 600 mg PO TID tab.er 09/15/19 [Rx] predniSONE 40 mg PO WITHBREAKFAST #8 tab 09/15/19 [Rx] Forms: ED Department Discharge Referrals: Leonel Caldwell PA-C [Primary Care Provider] - - Discharge Summary/Plan Comment DC Time >30 min.: Yes Discharge Summary/Plan Comment: Discharged home in good condition. Follow-up with primary care provider this week. Take all medications as prescribed She may benefit from an addition of Symbicort to her current regimen. - General Info Date of Service: 09/15/19 Admission Dx/Problem (Free Text: Admission Diagnosis/Problem Admission Diagnosis/Problem COPD, Mild chronic obstructive pulmonary disease Subjective Update: Patient is feeling much better today. She states that she is more productive with her sputum. Denies any fever or chills. Functional Status: Reports: Pain Controlled - Review of Systems General: Reports: No Symptoms HEENT: Reports: No Symptoms Pulmonary: Reports: Shortness of Breath, Cough, Sputum Cardiovascular: Reports: No Symptoms Gastrointestinal: Reports: No Symptoms Musculoskeletal: Reports: No Symptoms Neurological: Reports: No Symptoms - Patient Data Vitals - Most Recent: Last Vital Signs Temp 97.7 F 09/15/19 03:08 Pulse 73 09/15/19 09:11 Resp 20 09/15/19 03:08 BP 142/90 H 09/15/19 09:11 Pulse Ox 91 L 09/15/19 12:48 Weight - Most Recent: 241 lb 4.8 oz I&O - Last 24 hours: Intake & Output 09/14/19 09/15/19 09/15/19 22:59 06:59 14:59 Intake Total 1400 1000 160 Output Total 1000 2350 Balance 400 -1350 160 Med Orders - Current: Current Medications Acetaminophen (Tylenol) 650 mg PO Q4H PRN PRN Reason: Pain (Mild 1-3)/fever Albuterol (Proventil Neb Soln) 2.5 mg NEB Q2H PRN PRN Reason: Shortness Of Breath/wheezing Last Admin: 09/14/19 12:46 Dose: 2.5 mg Albuterol/Ipratropium (Duoneb 3.0-0.5 Mg/3 Ml) 3 ml NEB Q6HRRT [facility] Last Admin: 09/15/19 08:36 Dose: 3 ml Amlodipine Besylate (Norvasc) 5 mg PO DAILY [facility] Last Admin: 09/15/19 09:10 Dose: 5 mg Amoxicillin/Clavulanate Potassium (Augmentin 875 Mg/125 Mg) 1 tab PO BID [facility] Aspirin (Aspirin) 81 mg PO DAILY [facility] Last Admin: 09/15/19 09:11 Dose: 81 mg Enoxaparin Sodium (Lovenox) 40 mg SUBCUT DAILY [facility] Last Admin: 09/15/19 09:11 Dose: 40 mg Guaifenesin (Mucinex) 600 mg PO TID [facility] Last Admin: 09/15/19 09:10 Dose: 600 mg Hydrochlorothiazide (Hydrochlorothiazide) 25 mg PO DAILY [facility] Last Admin: 09/15/19 09:08 Dose: 25 mg Latanoprost (Xalatan 0.005% Ophth Soln) 0 ml EYEBOTH BEDTIME [facility] Last Admin: 09/14/19 20:31 Dose: 1 drop Levothyroxine Sodium (Synthroid) 150 mcg PO ACBREAKFAST [facility] Last Admin: 09/15/19 05:53 Dose: 150 mcg Lisinopril (Prinivil) 20 mg PO DAILY [facility] Last Admin: 09/15/19 09:08 Dose: 20 mg Methylprednisolone Sodium Succinate (Solu-Medrol) 40 mg IVPUSH Q8H [facility] Last Admin: 09/15/19 13:41 Dose: 40 mg Metoprolol Succinate (Toprol Xl) 200 mg PO DAILY [facility] Last Admin: 09/15/19 09:11 Dose: 200 mg Simvastatin (Zocor) 10 mg PO BEDTIME [facility] Last Admin: 09/14/19 20:31 Dose: 10 mg Timolol Maleate (Timoptic 0.5% Ophth Soln) 0 ml EYEBOTH DAILY [facility] Last Admin: 09/15/19 09:12 Dose: 1 drop Discontinued Medications Acetylcysteine (Mucomyst 20%) 800 mg NEB QIDRT [facility] Last Admin: 09/13/19 06:34 Dose: Not Given Albuterol (Proventil) 7.5 mg NEB ONETIME ONE Stop: 09/12/19 12:47 Last Admin: 09/12/19 13:09 Dose: 7.5 mg Albuterol/Ipratropium (Duoneb 3.0-0.5 Mg/3 Ml) 3 ml NEB ONETIME ONE Stop: 09/12/19 12:37 Last Admin: 09/12/19 12:49 Dose: 3 ml Potassium Chloride 10 meq/ (Premix) 100 mls @ 100 mls/hr IV Q1H [facility] Stop: 09/12/19 17:29 Last Admin: 09/12/19 19:48 Dose: Not Given Sodium Chloride (Normal Saline) 1,000 mls @ 100 mls/hr IV ASDIRECTED [facility] Last Admin: 09/12/19 16:44 Dose: 100 mls/hr Ceftriaxone Sodium 1 gm/ (Sodium Chloride) 100 mls @ 200 mls/hr IV Q24H [facility] Last Admin: 09/14/19 18:31 Dose: 200 mls/hr Lisinopril (Prinivil) 25 mg PO DAILY [facility] Last Admin: 09/14/19 08:17 Dose: 25 mg Methylprednisolone Sodium Succinate (Solu-Medrol) 40 mg IVPUSH Q6H [facility] Last Admin: 09/14/19 13:15 Dose: 40 mg Potassium Chloride (Klor-Con M20) 40 meq PO ONETIME ONE Stop: 09/12/19 21:01 Last Admin: 09/12/19 20:45 Dose: 40 meq Potassium Chloride (Klor-Con M20) 40 meq PO ONETIME ONE Stop: 09/13/19 09:01 Last Admin: 09/13/19 09:37 Dose: 40 meq - Exam Quality Assessment: Reports: Supplemental Oxygen General: Reports: Alert, Oriented HEENT: Reports: Pupils Equal, Mucous Membr. Moist/[place] Neck: Reports: Supple Lungs: Reports: Decreased Breath Sounds, Wheezing (Minimal wheezing throughout. Much improved.) Cardiovascular: Reports: Regular Rate, Regular Rhythm GI/Abdominal Exam: Normal Bowel Sounds, Soft, Non-Tender, No Organomegaly, No Distention, No Abnormal Bruit, No Mass, Pelvis Stable Skin: Reports: Warm, Dry, Intact Psy/Mental Status: Reports: Alert, Normal Affect, Normal Mood
[2019-09-15 16:30] VITALS: BP 146/90; PULSE 74
[2019-09-15] MEDS ORDERED: Amoxicillin/Clavulanate K 875-125 MG Tab PO SCH (21:00)
== END 2019-09-15 15:37 | disposition home or self-care (01) | DRG 140 ==
LOC: JD.ED 12:04 → JD.MS 14:40
PROVIDERS: ADMIT Family Medicine; ATTEND Family Medicine
DX: J44.1 Chronic obstructive pulmonary disease with (acute) exacerbation (principal); N93.9 Abnormal uterine and vaginal bleeding, unspecified; I10 Essential (primary) hypertension; E03.9 Hypothyroidism, unspecified; E66.9 Obesity, unspecified; J30.9 Allergic rhinitis, unspecified; D64.9 Anemia, unspecified; Z79.82 Long term (current) use of aspirin; Z79.890 Hormone replacement therapy; Z79.899 Other long term (current) drug therapy; Z87.891 Personal history of nicotine dependence; Z68.35 Body mass index [BMI] 35.0-35.9, adult; Z20.828 Contact with and (suspected) exposure to other viral communicable diseases
CPT/HCPCS: 36415; 71045; 71045-26; 80048; 80053; 83735; 83880; 84443; 84484; 85007; 85025; 85027; 85652; 86140; 93005; 93010; 94640; 94667; 94668; 94760; 94761; 96374; 99222; 99232; 99239; 99284; 99285-25; A9270-GY; J0696; J1650; J2920; J3480; J7030; J7050; J7620-GY; U0002

== ENCOUNTER 2021-05-08 07:33 | Emergency (ER) | payer BC ==
[2021-05-08 07:42] VITALS: PULSE 95
[2021-05-08] MEDS ORDERED: Sodium Chloride 0.9% 10 ML Syringe FLUSH PRN (07:48)
[2021-05-08] MEDS ORDERED: Albuterol/Ipratropium 3.0-0.5 MG/3 ML Neb Soln NEB ONE ×2 (07:49→09:30)
[2021-05-08] MEDS ORDERED: methylPREDNISolone Sodium Succinate 125 MG/2 ML SDV IVPUSH ONE (07:49)
[2021-05-08 08:47] LABS: CORONAVIRUS COVID-19 NAA NEGATIVE (NEGATIVE)
== END 2021-05-08 12:32 | disposition home or self-care (01) ==
LOC: JD.ED 07:33
DX: J40 Bronchitis, not specified as acute or chronic (principal); I10 Essential (primary) hypertension; E03.9 Hypothyroidism, unspecified; E66.9 Obesity, unspecified; Z68.38 Body mass index [BMI] 38.0-38.9, adult; Z79.82 Long term (current) use of aspirin; Z79.899 Other long term (current) drug therapy
CPT/HCPCS: 0241U; 36415; 71045; 80053; 85025; 86140; 94640; 96374; 99285; J2930; J7620-GY

== ENCOUNTER 2023-07-13 18:48 | Emergency (ER) | payer BC ==
[2023-07-13] MEDS: Albuterol/Ipratropium 3.0-0.5 MG/3 ML Neb Soln NEB ONE ×2 (18:55→19:29)
[2023-07-13] MEDS ORDERED: Magnesium Sulfate (4.06 MEQ/ML) 5 GM/10 ML SDV IV ONE (19:07)
[2023-07-13] MEDS: methylPREDNISolone Sodium Succinate 125 MG/2 ML SDV IVPUSH ONE (19:10)
[2023-07-13 19:18] LABS: BASE EXCESS ARTERIAL 0.6 (-2-2.0); BICARBONATE,ARTERIAL 27.3 meq/L (22.0-26.0); O2 SATURATION ARTERIAL 99.9 % (96.0-97.0); PCO2 ARTERIAL 55.5 mmHg (35.0-45.0)
[2023-07-13] MEDS: Magnesium Sulfate/Water 2 GM/50 ML BAG IV ONE (19:23)
[2023-07-13] MEDS: Budesonide 0.5 MG/2 ML Neb Susp NEB ONE (19:30)
[2023-07-13 19:37] LABS: BASOPHILS ABSOLUTE AUTO 0.1 K/mm3 (0.0-0.2); BASOPHILS PERCENT AUTO 0.8 % (0.0-1.0); EOSINOPHILS ABSOLUTE AUTO 1.4 K/mm3 (0.0-0.4); EOSINOPHILS PERCENT AUTO 9.2 % (0.0-6.0); HEMOGLOBIN 13.6 gm/dl (12.0-16.0); IMMATURE GRAN ABSOLUTE AUTO 0.06 K/mm3 (0.00-0.05); IMMATURE GRAN PERCENT AUTO 0.4 % (0.0-0.4); LYMPHOCYTES ABSOLUTE AUTO 1.9 K/mm3 (1.0-4.8); LYMPHOCYTES PERCENT AUTO 12.7 % (24.0-44.0); MEAN CORPUSCULAR HGB CONC 31.6 g/dl (32.0-36.0); MEAN CORPUSCULAR VOLUME 82.2 fl (83.0-99.0); MEAN PLATELET VOLUME 10.7 fl (9.4-12.3); MONOCYTES ABSOLUTE AUTO 0.9 K/mm3 (0.0-0.8); NEUTROPHILS ABSOLUTE AUTO 10.6 K/mm3 (1.8-7.7); NEUTROPHILS PERCENT AUTO 70.9 % (41.0-71.0); PLATELET COUNT,PLT 301 K/mm3 (150-400); RED BLOOD CELL COUNT 5.23 M/mm3 (4.10-5.30); WHITE BLOOD CELL COUNT,WBC 14.89 K/mm3 (3.9-11.3)
[2023-07-13 20:01] LABS: A/G RATIO 0.9 (1-2); ALBUMIN 3.8 g/dl (3.4-5.0); ANION GAP 11.5 (5-15); BILIRUBIN TOTAL 0.6 mg/dL (0.2-1.0); BUN/CREATININE RATIO 12.2 (14-18); CALCIUM 9.5 mg/dL (8.5-10.1); CREATININE 0.9 mg/dL (0.55-1.02); EST CRCL DRUG DOSING (CG) 68.6 mL/min; POTASSIUM,K 3.5 mEq/L (3.5-5.1); PROTEIN TOTAL,TP 7.9 g/dl (6.4-8.2)
[2023-07-13 20:13] LABS: CORONAVIRUS COVID-19 NAA POSITIVE (NEGATIVE); INFLUENZA A NAA NEGATIVE (NEGATIVE)
[2023-07-13 20:24] LABS: INR 1.04; PROTHROMBIN TIME 11.1 SECONDS (9.7-12.0)
[2023-07-13] MEDS: Aspirin 81 MG Tab.Chew PO ONE (20:24)
[2023-07-13] MEDS: Heparin Sodium 5,000 Units/ML Vial IVPUSH ONE (21:00)
[2023-07-13] MEDS: Heparin Sodium/D5W 25,000 UNITS/500 ML BAG IV SCH (21:01)
[2023-07-13] MEDS: Albuterol/Ipratropium 3.0-0.5 MG/3 ML Neb Soln NEB PRN (22:50)
[2023-07-14 00:07] VITALS: BP 148/86; PULSE 100
== END 2023-07-13 23:22 ==
LOC: JD.ED 18:48
DX: U07.1 COVID-19 (principal); I21.4 Non-ST elevation (NSTEMI) myocardial infarction; J96.02 Acute respiratory failure with hypercapnia; I10 Essential (primary) hypertension; E03.9 Hypothyroidism, unspecified; Z79.82 Long term (current) use of aspirin; Z79.899 Other long term (current) drug therapy
CPT/HCPCS: 0240U; 36415; 36600; 71045; 71045-26; 80053; 82803; 83880; 84484; 85025; 85379; 85610; 93005; 93010; 94640; 96365; 96366; 96367; 96375; 99285; 99285-25; A9270-GY; J1644; J2930; J3475; J3490; J7620-GY

== ENCOUNTER 2024-01-20 19:46 | Emergency (ER) | payer BC ==
[2024-01-20 20:02] VITALS: BP 174/113; PULSE 77
[2024-01-20 20:27] LABS: BASOPHILS ABSOLUTE AUTO 0.1 K/mm3 (0.0-0.2); BASOPHILS PERCENT AUTO 1.3 % (0.0-1.0); EOSINOPHILS ABSOLUTE AUTO 1.4 K/mm3 (0.0-0.4); EOSINOPHILS PERCENT AUTO 15.5 % (0.0-6.0); HEMATOCRIT 43.2 % (37.0-47.0); HEMOGLOBIN 13.6 gm/dl (12.0-16.0); IMMATURE GRAN ABSOLUTE AUTO 0.02 K/mm3 (0.00-0.05); IMMATURE GRAN PERCENT AUTO 0.2 % (0.0-0.4); LYMPHOCYTES ABSOLUTE AUTO 1.8 K/mm3 (1.0-4.8); LYMPHOCYTES PERCENT AUTO 19.8 % (24.0-44.0); MEAN CORPUSCULAR HEMOGLOBIN 23.9 pg (28.0-32.0); MEAN CORPUSCULAR HGB CONC 31.5 g/dl (32.0-36.0); MEAN CORPUSCULAR VOLUME 75.8 fl (83.0-99.0); MEAN PLATELET VOLUME 11.2 fl (9.4-12.3); MONOCYTES ABSOLUTE AUTO 0.9 K/mm3 (0.0-0.8); MONOCYTES PERCENT AUTO 9.5 % (0.0-8.0); NEUTROPHILS PERCENT AUTO 53.7 % (41.0-71.0); PLATELET COUNT,PLT 298 K/mm3 (150-400)
[2024-01-20 20:39] LABS: HEMOGLOBIN A1C 5.9 %
[2024-01-20 20:49] LABS: ALBUMIN 4.1 g/dl (3.4-5.0); ANION GAP 15.6 (5-15); BILIRUBIN TOTAL 0.4 mg/dL (0.2-1.0); BUN/CREATININE RATIO 17.8 (14-18); C-REACTIVE PROTEIN 0.67 mg/dL (<0.30); CALCIUM 9.9 mg/dL (8.5-10.1); CREATININE 0.9 mg/dL (0.55-1.02); EST CRCL DRUG DOSING (CG) 68.6 mL/min; POTASSIUM,K 3.6 mEq/L (3.5-5.1); PROTEIN TOTAL,TP 8.2 g/dl (6.4-8.2); TSH 17.246 uIU/mL (0.358-3.74)
[2024-01-20] MEDS: Albuterol/Ipratropium 3.0-0.5 MG/3 ML Neb Soln NEB ONE (20:50)
[2024-01-20] MEDS: Albuterol/Ipratropium 3.0-0.5 MG/3 ML Neb Soln ONE (21:06)
[2024-01-20] MEDS: Furosemide 40 MG/4 ML VIAL IVPUSH ONE (21:16)
[2024-01-20] MEDS: Sodium Chloride 0.9% 10 ML Syringe FLUSH PRN (21:17)
[2024-01-20 21:19] LABS: INR 1.07; PROTHROMBIN TIME 11.3 SECONDS (9.7-12.0)
[2024-01-20 21:20] LABS: PTT,PARTIAL THROMBOPLSTIN TIME 29.6 SECONDS (21.7-31.4)
[2024-01-20 21:23] LABS: APPEARANCE,URINE CLEAR (Clear); BILIRUBIN,URINE NEGATIVE (Negative); COLOR,URINE LIGHT YELLOW (Yellow); GLUCOSE,URINE NEGATIVE (Negative); KETONES,URINE NEGATIVE (Negative); LEUKOCYTE ESTERASE,URINE TRACE (Negative); NITRITE,URINE NEGATIVE (Negative); OCCULT BLOOD,URINE NEGATIVE (Negative); PH,URINE 6.5 (5.0-8.0); PROTEIN,URINE TRACE (Negative); UROBILINOGEN,URINE 0.2 (0.2-1.0)
[2024-01-20 21:34] LABS: BACTERIA,URINE FEW /hpf (FEW); MUCUS,URINE NOT SEEN /hpf (FEW); RBC,URINE 0-5 /hpf (0-5); SQUAMOUS EPITHELIAL CELLS,UR 20-30 /hpf (0-5)
[2024-01-20] MEDS: Levofloxacin/Dextrose 5%-Water 750 MG in Premix Bag 1 BAG IV ONE (21:46)
[2024-01-20] MEDS ORDERED: Levothyroxine 125 MCG Tab PO ONE (21:48)
[2024-01-20 21:52] LABS: CORONAVIRUS COVID-19 NAA NEGATIVE (NEGATIVE); INFLUENZA A NAA NEGATIVE (NEGATIVE); RESPIRATORY SYNCYTIAL VIR NAA NEGATIVE (NEGATIVE)
[2024-01-20] MEDS: Levothyroxine 50 MCG Tab PO ONE (22:13)
== END 2024-01-21 | disposition home or self-care (01) ==
LOC: JD.ED 19:46
DX: J20.9 Acute bronchitis, unspecified (principal); J15.7 Pneumonia due to Mycoplasma pneumoniae; E89.0 Postprocedural hypothyroidism; I10 Essential (primary) hypertension; E66.9 Obesity, unspecified; Z86.16 Personal history of COVID-19; Z87.891 Personal history of nicotine dependence; Z79.82 Long term (current) use of aspirin; Z79.899 Other long term (current) drug therapy; Z79.890 Hormone replacement therapy; Z68.36 Body mass index [BMI] 36.0-36.9, adult
CPT/HCPCS: 0241U; 36415; 71045; 80053; 81001; 83036; 83735; 83880; 84443; 84484; 85025; 85379; 85610; 85730; 86140; 86738; 87086; 93005; 96365; 96366; 96375; 99285; A9270; J1940; J1956; J3490; 93010; 99284; J7620-GY

== ENCOUNTER 2024-08-21 04:58 | Inpatient (IN) | payer BC ==
[2024-08-21] MEDS ORDERED: Sodium Chloride 0.9% 10 ML Syringe FLUSH PRN (05:23)
[2024-08-21] MEDS: Albuterol/Ipratropium 3.0-0.5 MG/3 ML Neb Soln NEB SCH ×2 (05:28→18:15)
[2024-08-21] MEDS: methylPREDNISolone Sodium Succinate 125 MG/2 ML SDV IVPUSH ONE (05:30)
[2024-08-21 05:46] LABS: BASOPHILS ABSOLUTE AUTO 0.1 K/mm3 (0.0-0.2); BASOPHILS PERCENT AUTO 1.4 % (0.0-1.0); EOSINOPHILS ABSOLUTE AUTO 1.5 K/mm3 (0.0-0.4); EOSINOPHILS PERCENT AUTO 14.7 % (0.0-6.0); HEMOGLOBIN 15.3 gm/dl (12.0-16.0); IMMATURE GRAN ABSOLUTE AUTO 0.02 K/mm3 (0.00-0.05); IMMATURE GRAN PERCENT AUTO 0.2 % (0.0-0.4); LYMPHOCYTES ABSOLUTE AUTO 1.7 K/mm3 (1.0-4.8); LYMPHOCYTES PERCENT AUTO 16.7 % (24.0-44.0); MEAN CORPUSCULAR HEMOGLOBIN 30.4 pg (28.0-32.0); MEAN CORPUSCULAR HGB CONC 34.8 g/dl (32.0-36.0); MEAN PLATELET VOLUME 10.7 fl (9.4-12.3); MONOCYTES ABSOLUTE AUTO 0.8 K/mm3 (0.0-0.8); MONOCYTES PERCENT AUTO 7.8 % (0.0-8.0); NEUTROPHILS PERCENT AUTO 59.2 % (41.0-71.0); PLATELET COUNT,PLT 266 K/mm3 (150-400); RED BLOOD CELL COUNT 5.04 M/mm3 (4.10-5.30); WHITE BLOOD CELL COUNT,WBC 10.07 K/mm3 (3.9-11.3)
[2024-08-21 05:46] LABS: PH,VENOUS 7.36 (7.30-7.40)
[2024-08-21 05:47] LABS: BASE EXCESS VENOUS 4.7 (-4.0-2.0); BICARBONATE,VENOUS 32.2 meq/L (22-26); O2 SATURATION VENOUS 93.7
[2024-08-21 06:05] LABS: ALANINE AMINOTRANSFERASE,ALT 32 U/L (14-59); ALKALINE PHOSPHATASE 73 U/L (46-116); ANION GAP 13.2 (5-15); ASPARTATE AMNIOTRANSFERASE,AST 22 U/L (15-37); BILIRUBIN TOTAL 0.8 mg/dL (0.2-1.0); BLOOD UREA NITROGEN,BUN 8 mg/dL (7-18); BUN/CREATININE RATIO 8.9 (14-18); CALCIUM 9.8 mg/dL (8.5-10.1); CARBON DIOXIDE,CO2 31 mEq/L (21-32); CHLORIDE,CL 101 mEq/L (98-107); CREATININE 0.9 mg/dL (0.55-1.02); ESTIMATED GFR 72 mL/min (>60); GLUCOSE RANDOM 116 mg/dL (70-99); POTASSIUM,K 3.2 mEq/L (3.5-5.1); PROTEIN TOTAL,TP 8.1 g/dl (6.4-8.2); SODIUM,NA 142 mEq/L (136-145)
[2024-08-21 06:11] LABS: TROPONIN I HIGH SENSITIVITY 117 pg/mL (<=51)
[2024-08-21 06:14] LABS: MEAN CORPUSCULAR VOLUME 87.3 fl (83.0-99.0)
[2024-08-21] MEDS: Albuterol 0.083% 2.5 MG/3 ML Neb Soln NEB ONE ×2 (07:35→07:52)
[2024-08-21 07:36] LABS: CORONAVIRUS COVID-19 NAA NEGATIVE (NEGATIVE); INFLUENZA A NAA NEGATIVE (NEGATIVE); RESPIRATORY SYNCYTIAL VIR NAA NEGATIVE (NEGATIVE)
[2024-08-21 08:18] LABS: BASE EXCESS ARTERIAL 5.9 (-2-2.0); BICARBONATE,ARTERIAL 30.6 meq/L (22.0-26.0); O2 SATURATION ARTERIAL 94.1 % (96.0-97.0)
[2024-08-21] MEDS: Potassium Chloride 20 MEQ Tab.ER PO ONE (09:07)
[2024-08-21] MEDS: Albuterol/Ipratropium 3.0-0.5 MG/3 ML Neb Soln NEB ONE (14:15)
[2024-08-21] MEDS ORDERED: Acetaminophen 325 MG Tab PO PRN (14:30)
[2024-08-21] MEDS: Furosemide 20 MG/2 ML VIAL IVPUSH ONE (18:29)
[2024-08-21 18:47] LABS: TSH 1.841 uIU/mL (0.358-3.74)
[2024-08-21] MEDS: Metoprolol Tartrate 50 MG Tab PO SCH (20:05)
[2024-08-21] MEDS: Rosuvastatin 10 MG Tab PO SCH (20:06)
[2024-08-21] MEDS: Latanoprost 0.005% Ophth Soln 2.5 ML Bottle EYEBOTH SCH (20:07)
[2024-08-22 04:15] LABS: BASOPHILS ABSOLUTE AUTO 0.1 K/mm3 (0.0-0.2); BASOPHILS PERCENT AUTO 0.4 % (0.0-1.0); EOSINOPHILS PERCENT AUTO 0.3 % (0.0-6.0); HEMATOCRIT 44.1 % (37.0-47.0); HEMOGLOBIN 15.3 gm/dl (12.0-16.0); IMMATURE GRAN ABSOLUTE AUTO 0.05 K/mm3 (0.00-0.05); IMMATURE GRAN PERCENT AUTO 0.4 % (0.0-0.4); LYMPHOCYTES ABSOLUTE AUTO 2.2 K/mm3 (1.0-4.8); LYMPHOCYTES PERCENT AUTO 18.7 % (24.0-44.0); MEAN CORPUSCULAR HEMOGLOBIN 29.9 pg (28.0-32.0); MEAN CORPUSCULAR HGB CONC 34.7 g/dl (32.0-36.0); MEAN CORPUSCULAR VOLUME 86.3 fl (83.0-99.0); MEAN PLATELET VOLUME 10.3 fl (9.4-12.3); MONOCYTES ABSOLUTE AUTO 1.2 K/mm3 (0.0-0.8); MONOCYTES PERCENT AUTO 10.2 % (0.0-8.0); NEUTROPHILS ABSOLUTE AUTO 8.2 K/mm3 (1.8-7.7); PLATELET COUNT,PLT 271 K/mm3 (150-400); RED BLOOD CELL COUNT 5.11 M/mm3 (4.10-5.30); WHITE BLOOD CELL COUNT,WBC 11.75 K/mm3 (3.9-11.3)
[2024-08-22 04:45] LABS: ANION GAP 11.3 (5-15); BUN/CREATININE RATIO 15.5 (14-18); CALCIUM 9.7 mg/dL (8.5-10.1); CREATININE 1.1 mg/dL (0.55-1.02); EST CRCL DRUG DOSING (CG) 55.42 mL/min; POTASSIUM,K 3.3 mEq/L (3.5-5.1)
[2024-08-22] MEDS: methylPREDNISolone Sodium Succinate 40 MG/1 ML SDV IVPUSH SCH (08:26)
[2024-08-22] MEDS: Enoxaparin 40 MG/0.4 ML Syringe SUBCUT SCH (08:26)
[2024-08-22] MEDS: Levofloxacin/Dextrose 5%-Water 750 MG in Premix Bag 1 BAG IV SCH (08:26)
[2024-08-22] MEDS: Aspirin 81 MG Tab.Chew PO SCH (08:30)
[2024-08-22] MEDS: Tiotropium BR/Olodaterol HCL 4 GM Inhalation Spray 2.5mcg/1 dose; 10 doses INH SCH (11:39)
[2024-08-22] MEDS: Potassium Chloride 20 MEQ Tab.ER PO ONE (20:24)
[2024-08-23 05:53] LABS: BASOPHILS PERCENT AUTO 0.3 % (0.0-1.0); EOSINOPHILS PERCENT AUTO 0.1 % (0.0-6.0); HEMATOCRIT 44.8 % (37.0-47.0); HEMOGLOBIN 15.4 gm/dl (12.0-16.0); IMMATURE GRAN ABSOLUTE AUTO 0.08 K/mm3 (0.00-0.05); IMMATURE GRAN PERCENT AUTO 0.8 % (0.0-0.4); LYMPHOCYTES ABSOLUTE AUTO 1.2 K/mm3 (1.0-4.8); LYMPHOCYTES PERCENT AUTO 11.6 % (24.0-44.0); MEAN CORPUSCULAR HEMOGLOBIN 30.3 pg (28.0-32.0); MEAN CORPUSCULAR HGB CONC 34.4 g/dl (32.0-36.0); MEAN CORPUSCULAR VOLUME 88.2 fl (83.0-99.0); MEAN PLATELET VOLUME 10.4 fl (9.4-12.3); MONOCYTES ABSOLUTE AUTO 0.3 K/mm3 (0.0-0.8); MONOCYTES PERCENT AUTO 2.7 % (0.0-8.0); NEUTROPHILS ABSOLUTE AUTO 8.4 K/mm3 (1.8-7.7); NEUTROPHILS PERCENT AUTO 84.5 % (41.0-71.0); PLATELET COUNT,PLT 266 K/mm3 (150-400); RED BLOOD CELL COUNT 5.08 M/mm3 (4.10-5.30); WHITE BLOOD CELL COUNT,WBC 9.97 K/mm3 (3.9-11.3)
[2024-08-23] MEDS: Levothyroxine 25 MCG Tab PO SCH (06:40)
[2024-08-23] MEDS: Levothyroxine 112 MCG Tab PO SCH (06:40)
[2024-08-23 06:50] LABS: BUN/CREATININE RATIO 24.4 (14-18); CREATININE 0.9 mg/dL (0.55-1.02); EST CRCL DRUG DOSING (CG) 67.73 mL/min
[2024-08-23] MEDS: Furosemide 40 MG/4 ML VIAL IVPUSH ONE (13:08)
[2024-08-23] MEDS ORDERED: Melatonin 3 MG Tab PO PRN (20:22)
[2024-08-24 05:47] LABS: BASOPHILS PERCENT AUTO 0.3 % (0.0-1.0); EOSINOPHILS PERCENT AUTO 0.1 % (0.0-6.0); HEMATOCRIT 44.7 % (37.0-47.0); HEMOGLOBIN 15.7 gm/dl (12.0-16.0); IMMATURE GRAN PERCENT AUTO 0.9 % (0.0-0.4); LYMPHOCYTES PERCENT AUTO 9.6 % (24.0-44.0); MEAN CORPUSCULAR HEMOGLOBIN 30.5 pg (28.0-32.0); MEAN CORPUSCULAR HGB CONC 35.1 g/dl (32.0-36.0); MEAN CORPUSCULAR VOLUME 86.8 fl (83.0-99.0); MEAN PLATELET VOLUME 10.5 fl (9.4-12.3); MONOCYTES ABSOLUTE AUTO 0.3 K/mm3 (0.0-0.8); MONOCYTES PERCENT AUTO 2.9 % (0.0-8.0); NEUTROPHILS ABSOLUTE AUTO 9.2 K/mm3 (1.8-7.7); NEUTROPHILS PERCENT AUTO 86.2 % (41.0-71.0); PLATELET COUNT,PLT 297 K/mm3 (150-400); RED BLOOD CELL COUNT 5.15 M/mm3 (4.10-5.30); WHITE BLOOD CELL COUNT,WBC 10.69 K/mm3 (3.9-11.3)
[2024-08-24 06:12] LABS: ANION GAP 12.6 (5-15); CALCIUM 10.1 mg/dL (8.5-10.1); CREATININE 0.9 mg/dL (0.55-1.02); EST CRCL DRUG DOSING (CG) 67.73 mL/min; POTASSIUM,K 3.6 mEq/L (3.5-5.1)
[2024-08-24] MEDS: guaiFENesin 600 MG Tab.ER PO SCH (14:05)
[2024-08-24] MEDS: Iopamidol 755 Mg/ML 100 ML Bottle IVPUSH ONE (16:27)
[2024-08-24] MEDS ORDERED: Sodium Chloride 0.9% 100 ML IV SCH (16:30)
[2024-08-24] MEDS: LORazepam 1 MG Tab PO ONE (23:31)
[2024-08-25] MEDS: Pantoprazole 40 MG Tab.CR PO SCH (08:03)
[2024-08-25] MEDS: methylPREDNISolone Sodium Succinate 40 MG/1 ML SDV IVPUSH SCH (08:04)
[2024-08-25] MEDS: Levofloxacin/Dextrose 5%-Water 750 MG in Premix Bag 1 BAG IV SCH (08:06)
[2024-08-25] MEDS ORDERED: Doxycycline 100 MG in Sodium Chloride 0.9% 100 ML IV SCH (10:00)
[2024-08-25] MEDS: Azithromycin 500 MG in Sodium Chloride 0.9% 250 ML IV ONE (11:31)
[2024-08-25] MEDS: Lisinopril 20 MG Tab PO SCH (16:05)
[2024-08-26] MEDS: amLODIPine 5 MG Tab PO SCH (08:11)
[2024-08-26] MEDS: hydrOXYzine HCl 50 MG Tab PO PRN (09:55)
[2024-08-26 10:07] LABS: BASOPHILS PERCENT AUTO 0.3 % (0.0-1.0); EOSINOPHILS ABSOLUTE AUTO 0.3 K/mm3 (0.0-0.4); EOSINOPHILS PERCENT AUTO 2.2 % (0.0-6.0); HEMATOCRIT 47.3 % (37.0-47.0); HEMOGLOBIN 16.7 gm/dl (12.0-16.0); IMMATURE GRAN ABSOLUTE AUTO 0.07 K/mm3 (0.00-0.05); IMMATURE GRAN PERCENT AUTO 0.6 % (0.0-0.4); LYMPHOCYTES ABSOLUTE AUTO 1.5 K/mm3 (1.0-4.8); LYMPHOCYTES PERCENT AUTO 12.5 % (24.0-44.0); MEAN CORPUSCULAR HEMOGLOBIN 30.9 pg (28.0-32.0); MEAN CORPUSCULAR HGB CONC 35.3 g/dl (32.0-36.0); MEAN CORPUSCULAR VOLUME 87.4 fl (83.0-99.0); MEAN PLATELET VOLUME 10.6 fl (9.4-12.3); MONOCYTES ABSOLUTE AUTO 0.8 K/mm3 (0.0-0.8); MONOCYTES PERCENT AUTO 6.7 % (0.0-8.0); NEUTROPHILS ABSOLUTE AUTO 9.3 K/mm3 (1.8-7.7); NEUTROPHILS PERCENT AUTO 77.7 % (41.0-71.0); PLATELET COUNT,PLT 288 K/mm3 (150-400); RED BLOOD CELL COUNT 5.41 M/mm3 (4.10-5.30)
[2024-08-26 10:33] LABS: ALBUMIN 3.9 g/dl (3.4-5.0); ANION GAP 9.9 (5-15); BILIRUBIN TOTAL 0.7 mg/dL (0.2-1.0); BUN/CREATININE RATIO 23.8 (14-18); CALCIUM 9.3 mg/dL (8.5-10.1); CREATININE 0.8 mg/dL (0.55-1.02); EST CRCL DRUG DOSING (CG) 76.2 mL/min; POTASSIUM,K 3.9 mEq/L (3.5-5.1); PROTEIN TOTAL,TP 7.7 g/dl (6.4-8.2)
[2024-08-26] MEDS: Azithromycin 250 MG in Sodium Chloride 0.9% 250 ML IV SCH (10:55)
[2024-08-26] MEDS: Hydrochlorothiazide 25 MG Tab PO SCH (10:55)
[2024-08-26] MEDS: Azithromycin 500 MG Vial ONE (11:22)
[2024-08-26] MEDS: LORazepam 2 MG/ML SDV IVPUSH ONE (11:33)
[2024-08-26] MEDS: cefTRIAXone 1 GM Vial IVPUSH SCH (13:15)
[2024-08-27 08:11] LABS: BASOPHILS PERCENT AUTO 0.2 % (0.0-1.0); EOSINOPHILS ABSOLUTE AUTO 0.3 K/mm3 (0.0-0.4); EOSINOPHILS PERCENT AUTO 3.3 % (0.0-6.0); HEMATOCRIT 46.1 % (37.0-47.0); HEMOGLOBIN 16.1 gm/dl (12.0-16.0); IMMATURE GRAN ABSOLUTE AUTO 0.05 K/mm3 (0.00-0.05); IMMATURE GRAN PERCENT AUTO 0.5 % (0.0-0.4); LYMPHOCYTES ABSOLUTE AUTO 3.2 K/mm3 (1.0-4.8); LYMPHOCYTES PERCENT AUTO 31.7 % (24.0-44.0); MEAN CORPUSCULAR HEMOGLOBIN 30.6 pg (28.0-32.0); MEAN CORPUSCULAR HGB CONC 34.9 g/dl (32.0-36.0); MEAN CORPUSCULAR VOLUME 87.5 fl (83.0-99.0); MEAN PLATELET VOLUME 10.6 fl (9.4-12.3); MONOCYTES PERCENT AUTO 10.4 % (0.0-8.0); NEUTROPHILS ABSOLUTE AUTO 5.4 K/mm3 (1.8-7.7); NEUTROPHILS PERCENT AUTO 53.9 % (41.0-71.0); PLATELET COUNT,PLT 257 K/mm3 (150-400); RED BLOOD CELL COUNT 5.27 M/mm3 (4.10-5.30); WHITE BLOOD CELL COUNT,WBC 9.94 K/mm3 (3.9-11.3)
[2024-08-27 08:27] LABS: ANION GAP 7.4 (5-15); BUN/CREATININE RATIO 22.2 (14-18); CALCIUM 9.7 mg/dL (8.5-10.1); CREATININE 0.9 mg/dL (0.55-1.02); EST CRCL DRUG DOSING (CG) 67.73 mL/min; POTASSIUM,K 3.4 mEq/L (3.5-5.1)
[2024-08-27 19:51] LABS: BASE EXCESS ARTERIAL 6.7 (-2-2.0); BICARBONATE,ARTERIAL 30.4 meq/L (22.0-26.0); O2 SATURATION ARTERIAL 91.4 % (96.0-97.0)
[2024-08-28 04:51] LABS: BASOPHILS PERCENT AUTO 0.2 % (0.0-1.0); EOSINOPHILS ABSOLUTE AUTO 0.1 K/mm3 (0.0-0.4); EOSINOPHILS PERCENT AUTO 0.7 % (0.0-6.0); HEMATOCRIT 42.9 % (37.0-47.0); HEMOGLOBIN 15.5 gm/dl (12.0-16.0); IMMATURE GRAN ABSOLUTE AUTO 0.04 K/mm3 (0.00-0.05); IMMATURE GRAN PERCENT AUTO 0.4 % (0.0-0.4); LYMPHOCYTES ABSOLUTE AUTO 2.1 K/mm3 (1.0-4.8); LYMPHOCYTES PERCENT AUTO 21.7 % (24.0-44.0); MEAN CORPUSCULAR HEMOGLOBIN 30.3 pg (28.0-32.0); MEAN CORPUSCULAR HGB CONC 36.1 g/dl (32.0-36.0); MONOCYTES ABSOLUTE AUTO 0.8 K/mm3 (0.0-0.8); MONOCYTES PERCENT AUTO 8.4 % (0.0-8.0); NEUTROPHILS ABSOLUTE AUTO 6.7 K/mm3 (1.8-7.7); NEUTROPHILS PERCENT AUTO 68.6 % (41.0-71.0); PLATELET COUNT,PLT 245 K/mm3 (150-400); RED BLOOD CELL COUNT 5.11 M/mm3 (4.10-5.30); WHITE BLOOD CELL COUNT,WBC 9.75 K/mm3 (3.9-11.3)
[2024-08-28 05:07] LABS: ANION GAP 11.1 (5-15); BUN/CREATININE RATIO 27.5 (14-18); CALCIUM 9.7 mg/dL (8.5-10.1); CREATININE 0.8 mg/dL (0.55-1.02); EST CRCL DRUG DOSING (CG) 76.2 mL/min; POTASSIUM,K 3.1 mEq/L (3.5-5.1)
[2024-08-28] MEDS ORDERED: ALPRAZolam 1 MG Tab PO PRN (07:45)
[2024-08-28] MEDS: Sodium Chloride 0.45% with KCl 1,000 ML IV SCH (07:52)
[2024-08-28] MEDS: Potassium Chloride 20 MEQ Tab.ER PO ONE ×2 (07:52→13:02)
[2024-08-28] MEDS: predniSONE 20 MG Tab PO ONE (08:18)
[2024-08-28] MEDS: Doxycycline 100 MG in Sodium Chloride 0.9% 100 ML IV SCH (08:46)
[2024-08-28] MEDS: Sodium Chloride 3% Inhalation Soln 4 ML Neb NEB SCH (09:00)
[2024-08-28] MEDS: Albuterol/Ipratropium 3.0-0.5 MG/3 ML Neb Soln NEB SCH (09:00)
[2024-08-28] MEDS ORDERED: Sodium Chloride 3% Inhalation Soln 4 ML Neb NEB SCH (10:00)
[2024-08-28 13:48] LABS: BORDETELLA PARAPERT IS1001 Not Detected (Not Detected)
[2024-08-28] MEDS ORDERED: Sennosides/Docusate Sodium 50-8.6 MG Tab PO PRN (15:33)
[2024-08-29 04:55] LABS: ANION GAP 11.4 (5-15); BUN/CREATININE RATIO 28.8 (14-18); CALCIUM 9.4 mg/dL (8.5-10.1); CREATININE 0.8 mg/dL (0.55-1.02); EST CRCL DRUG DOSING (CG) 76.2 mL/min; MAGNESIUM 1.9 mg/dL (1.8-2.4); PHOSPHORUS 3.6 mg/dL (2.6-4.7); POTASSIUM,K 3.4 mEq/L (3.5-5.1)
[2024-08-29 06:43] LABS: QNTIFERON MITOGEN MIN NIL 9.99 IU/mL; QNTIFERON NIL 0.01 IU/mL; QNTIFERON PLUS TB1 MINUS NIL 0.02 IU/mL (<=0.34); QNTIFERON PLUS TB2 MINUS NIL 0.02 IU/mL (<=0.34); QNTIFERON TB GOLD PLUS Negative (Negative)
[2024-08-29] MEDS: Magnesium Sulfat/D5W 1GM/100ML 1 GM in Premix Bag 1 BAG IV ONE (08:19)
[2024-08-29] MEDS: Potassium Chloride 20 MEQ Tab.ER PO ONE ×2 (08:20→10:06)
[2024-08-29] MEDS: predniSONE 20 MG Tab PO SCH (08:25)
[2024-08-29 08:28] VITALS: BP 138/77; PULSE 81
== END 2024-08-29 11:00 | disposition home or self-care (01) | DRG 139 ==
LOC: JD.ED 04:58 → JD.MS 14:30 → JD.ICU 08-28 08:22
PROVIDERS: ADMIT Family Medicine; ATTEND Student in an Organized Health Care Education/Training Program
PROC: 5A09357 Assistance with Respiratory Ventilation, Less than 24 Consecutive Hours, Continuous Positive Airway Pressure (ICD-10-PCS; principal; 2024-08-26)
DX: J15.7 Pneumonia due to Mycoplasma pneumoniae (principal); J96.01 Acute respiratory failure with hypoxia; J47.9 Bronchiectasis, uncomplicated; J44.1 Chronic obstructive pulmonary disease with (acute) exacerbation; F17.210 Nicotine dependence, cigarettes, uncomplicated; E78.00 Pure hypercholesterolemia, unspecified; H40.9 Unspecified glaucoma; E03.9 Hypothyroidism, unspecified; J98.11 Atelectasis; J44.0 Chronic obstructive pulmonary disease with (acute) lower respiratory infection; I27.20 Pulmonary hypertension, unspecified; E87.6 Hypokalemia; F41.9 Anxiety disorder, unspecified; I50.32 Chronic diastolic (congestive) heart failure; I21.A1 Myocardial infarction type 2; I11.0 Hypertensive heart disease with heart failure; D64.9 Anemia, unspecified; Z79.890 Hormone replacement therapy; Z79.01 Long term (current) use of anticoagulants; Z95.2 Presence of prosthetic heart valve
CPT/HCPCS: 0241U; 36415; 36600; 71045; 71045-26; 71046; 71046-26; 71275; 71275-26; 80048; 80053; 82803; 83735; 83880; 84100; 84443; 84484; 85025; 85379; 85652; 86140; 86480; 86738; 87070; 87205; 87486; 87581; 87633; 87641; 93005; 93010; 93306; 94640; 94660; 94667; 94668; 94761; 96374; 99285; 99285-25; A9270-GY; J0456; J0696; J1650; J1938; J1956; J2060; J2919; J3475; J3480; J3490; J7512; Q9967